=== PATIENT | female | born 1940 | race Caucasian/White ===

== ENCOUNTER 2023-07-12 11:17 | Emergency (ER) | payer MEDICARE, SELFPAY ==
[2023-07-12 11:45] VITALS: BP 162/85; PULSE 73; RESP 18; TEMP 36.4; O2SAT 96; BMI 26.6
--- NOTE | 2023-07-12 11:51 | XR_ITS ---
PROCEDURE INFORMATION: Exam: XR Chest Exam date and time: 07/12/2023 11:49 AM Age: 83 years old Clinical indication: Cough and shortness of breath TECHNIQUE: Imaging protocol: Radiologic exam of the chest. Views: 2 views. Total images: 2 COMPARISON: No relevant prior studies available. FINDINGS: Tubes, catheters and devices: A pacemaker device is present, its leads in appropriate position. Lungs: Bilateral hyperinflation is present. Pleural spaces: No focal pneumonia or pneumothorax. No pleural effusions. Heart/Mediastinum: The heart is not enlarged. Vasculature: Mild atherosclerotic disease. Bones/joints: Postoperative changes of the right shoulder. Postoperative changes of the lumbar spine. Intraperitoneal space: Postoperative changes noted within the epigastric region. IMPRESSION: 1. Bilateral hyperinflation is present. 2. No focal pneumonia or pneumothorax.
--- NOTE | 2023-07-12 12:39 | ED_ITS ---
Discharge Plan Disposition Patient Disposition: Home, Self-Care Condition: Good Prescriptions Prescriptions: New prednisone 10 mg tablet 10 mg PO BID 5 Days Qty: 10 0RF No Action cefdinir 300 mg capsule See Rx Instructions .ROUTE .COMPLEX Patient Comments: TAKE 1 CAPSULE BY MOUTH TWICE DAILY FOR 7 DAYS Rx Instructions: TAKE 1 CAPSULE BY MOUTH TWICE DAILY FOR 7 DAYS labetalol 200 mg tablet 200 mg PO BID famotidine 20 mg tablet 20 mg PO BID Patient Comments: TAKE 1 TABLET BY MOUTH TWICE DAILY nifedipine 60 mg tablet extended release 24hr 60 mg PO DAILY levothyroxine [Synthroid] 50 mcg tablet 50 mcg PO DAILY Referrals Follow up/Referrals: Gianna Zheng APRN [Primary Care Provider] - See instructions Activity Restrictions/Add. Instructions Additional Instructions/Restrictions: Tylenol and ibuprofen as needed for pain or fever Humidifier/vaporizer/hot steamy shower Follow-up with primary care tomorrow. Follow-up immediately in the ER of the [facility] for new or worsening symptoms or no noticeable improvement over the next 48-72 hours. Stop smoking Inhaler every 4-6 hours as needed. Should help open airways improved cough, wheezing, shortness of breath Feliciano Ward will not cause drowsiness to use at bedtime to help stop cough so that she can get some sleep Start steroids today. Helps with inflammation therefore coughing and wheezing. Follow directions on package. Clinical Impressions Clinical Impression: Bronchitis Instructions Patient Instructions: DI for Acute Bronchitis Discharge ED Provider: Bonita ([facility])Hansa [facility] HPI General Stated complaint: flu+ hard cough congestion weakness Mode of Arrival: Ambulatory Source of Information: Patient Limitations: No Limitations Time Seen by Provider: 07/12/23 12:39 Description of Symptoms (Recalled from Triage Doc. by RN): Pt was dx with flu 07/05/2023. She has coughing, and fatigue. HEENT Symptoms (Recalled from RN notes): Yes Resp Symptoms (Recalled from RN notes): No Skin Symptoms (Recalled from RN notes): No MS Symptoms (Recalled from RN notes): No Functional Status (Recalled from RN notes): n/a History of Present Illness Provider Complaint: 83 yr old female presents for c/o coughing, and fatigue. Related Data Home Medications Medication Instructions Recorded Confirmed cefdinir 300 mg capsule See Rx Instructions .Route .COMPLEX 07/12/23 07/12/23 famotidine 20 mg tablet 20 mg PO BID 07/12/23 07/12/23 labetalol 200 mg tablet 200 mg PO BID 07/12/23 07/12/23 levothyroxine 50 mcg tablet 50 mcg PO DAILY 07/12/23 07/12/23 (Synthroid) nifedipine 60 mg tablet,extended 60 mg PO DAILY 07/12/23 07/12/23 release 24 hr Previous Rx's Medication Instructions Recorded prednisone 10 mg tablet 10 mg PO BID 5 days #10 tabs 07/12/23 Allergies Allergy/AdvReac Type Severity Reaction Status Date / Time Penicillins Allergy Verified 07/12/23 12:08 Sulfa (Sulfonamide Allergy Verified 07/12/23 12:08 Antibiotics) Worker's Comp Is this a Worker's Comp case?: No [facility] Disclaimer: The information contained in this section may have been updated after the patient was seen, as this information can be updated by other users. Social History , [employer]) Smoking Status: Smoker, status unknown alcohol intake: never current occupational status: retired Travel in the last 8 weeks: None ROS Obtained: Yes All systems reviewed & no additional complaints except as documented Constitutional Constitutional: Reports system reviewed and no additional complaints, except as documented Eyes Eyes: Reports system reviewed and no additional complaints, except as documented ENT Ears, Nose, Mouth, and Throat: Reports system reviewed and no additional complaints, except as documented Cardiovascular Cardiovascular: Reports system reviewed and no additional complaints, except as documented Respiratory Respiratory: Reports system reviewed and no additional complaints, except as documented, Reports as per HPI and Reports cough Gastrointestinal Gastrointestingal: Reports system reviewed and no additional complaints, except as documented Musculoskeletal Musculoskeletal: Reports system reviewed and no additional complaints, except as documented Integumentary/Breasts Skin/Breast: Reports system reviewed and no additional complaints, except as documented Neurologic Neurologic: Reports system reviewed and no additional complaints, except as documented Endocrine Endocrine: Reports system reviewed and no additional complaints, except as documented Allergic/Immunologic Allergic/Immunologic: Reports system reviewed and no additional complaints, except as documented Physical Exam General General appearance: alert and in no apparent distress Head Head exam: atraumatic Eye Eye exam: Present normal appearance and PERRL ENT ENT exam: Present normal exam, normal oropharynx, mucous membranes moist and TM's normal bilaterally Respiratory Respiratory exam: Present wheezes Cardiovascular Cardiovascular exam: Present regular rate and normal rhythm Neurological Exam Neurological exam: Present alert and oriented X3 Skin Skin exam: Present warm and intact Medical Decision Making Medical Records Medical records reviewed: Yes I reviewed the patient's medical records. Xander Inquiry Pt receiving controlled substance: No Xander was queried for this patient: No Vital Signs: 07/12/23 11:45 Temperature 97.6 F Temperature Source Oral Pulse Rate [Right Radial] 73 Respiratory Rate 18 Blood Pressure [Right Arm] 162/85 H Blood Pressure Mean [Right Arm] 110 Blood Pressure Source [Right Arm] Automatic Cuff Blood Pressure Position [Right Arm] Sitting 02 Sat by Pulse Oximetry 96 Oxygen Delivery Method Room Air Orders (Tests/Meds): ORDERS Category Date Time Status Chest XR 2 view (NOT portable) [XR chest 2V] Stat Exams 07/12/23 11:51 Taken Radiology Data #1: Image(s): Chest Image Reviewed: Yes I have reviewed radiologist's interpretation Preliminary Findings: Normal/NAD bronchitis
[2023-07-12 13:33] VITALS: BP 162/85; PULSE 73; RESP 18; TEMP 36.6; O2SAT 96
== END 2023-07-12 13:33 | disposition home or self-care (01) ==
PROVIDERS: Emergency Provider Nurse Practitioner Family; PCP Nurse Practitioner Family
DX: J20.9 Acute bronchitis, unspecified (principal); R53.83 Other fatigue; R05.9 Cough, unspecified
CPT/HCPCS: 71046; 99204; 99212; G0463

== ENCOUNTER 2023-10-19 10:07 | Emergency (ER) | payer MEDICARE, SELFPAY ==
[2023-10-19 10:08] VITALS: BP 174/91; PULSE 77; RESP 19; TEMP 36.6; O2SAT 96; BMI 26.6
[2023-10-19 10:18] VITALS: BP 193/87; PULSE 73; O2SAT 96
[2023-10-19 10:24] LABS: Microscopic, Urine URINE MICROSCOPIC (MICROSCOPIC)
[2023-10-19 10:26] LABS: Appearance,Urine CLEAR (Clear); Bilirubin,Urine Negative (Negative); Blood, Urine Negative (Negative); Color,Urine YELLOW (Yellow); Glucose,Urine (UA) Negative (Negative); Ketones,Urine Negative (Negative); Leukocyte Esterase,Urine 2+ (Negative); Nitrate,Urine Negative (Negative); Protein,Urine Negative (Negative); Urobilinogen,Urine 0.2 EU/dl (0.2)
[2023-10-19 10:30] VITALS: BP 174/91; PULSE 70; O2SAT 97
[2023-10-19 10:35] LABS: Bacteria,Urine Trace /lpf
--- NOTE | 2023-10-19 10:53 | ECG_ITS ---
APPROVED REPORT Exam: Resting ECG HR:74 bpm ECG Measurements Heart Rate 74 AXES AL 242 P 111 QRSd 124 QRS -58 QT 382 T 29 QTc 410 Conclusion Normal sinus rhythm left axis deviation no acute ST elevation ST depression or T wave inversions concerning for acute ischemia Electronically signed by : Daja Hein, 10/19/2023 16:19:02
--- NOTE | 2023-10-19 11:26 | HMH.EDGENADL ---
Discharge Plan Disposition Patient Disposition: Home, Self-Care Chief Complaint: Recheck/Abnormal Lab/Rx Prescriptions Prescriptions: No Action cefdinir 300 mg capsule See Rx Instructions .ROUTE .COMPLEX Patient Comments: TAKE 1 CAPSULE BY MOUTH TWICE DAILY FOR 7 DAYS Rx Instructions: TAKE 1 CAPSULE BY MOUTH TWICE DAILY FOR 7 DAYS labetalol 200 mg tablet 200 mg PO BID famotidine 20 mg tablet 20 mg PO BID Patient Comments: TAKE 1 TABLET BY MOUTH TWICE DAILY nifedipine 60 mg tablet extended release 24hr 60 mg PO DAILY levothyroxine [Synthroid] 50 mcg tablet 50 mcg PO DAILY prednisone 10 mg tablet 10 mg PO BID 5 Days Qty: 10 0RF Referrals Follow up/Referrals: Gianna Zheng APRN [Primary Care Provider] - See instructions Activity Restrictions/Add. Instructions Additional Instructions/Restrictions: return to the emergency department if if she develops any unilateral weakness numbness chest pain trouble breathing nausea vomiting or headache Clinical Impressions Clinical Impression: Asymptomatic hypertension Print Language Print Language: Maltese Discharge ED Provider: Daja Hein General Adult HPI General Chief complaint: Recheck/Abnormal Lab/Rx Stated complaint: high blood pressure Time Seen by Provider: 10/19/23 10:38 Mode of Arrival: Ambulatory Source of Information: Patient Limitations: No Limitations Description of Symptoms (Recalled from ER Triage Doc. by RN): pt presents to ED with c/o high blood pressure. pt reports that for the past few weeks she has had high blood pressure readings at home. pt has had medications changes by her pcp on 10/14/23 pt was told to stop her labetalol and start carvedilol 12.5mg 2x day. pt reports her highest reading at home has been 181 systolic. History of Present Illness HPI narrative: Patient is a 83-year-old with past medical history significant for hypertension. Patient recently transitioned from labetalol to carvedilol on the seventh because it was making her drowsy. Since then she has had a woozy feeling and blood pressures have been ranging from 160s to 190s systolic. She was recommended by her PCP to be evaluated in the emergency department. Patient denies any visual symptoms headaches unilateral numbness tingling weakness chest pain trouble breathing Nausea or vomiting. Related Data Home Medications ?Medication ?Instructions ?Recorded ?Confirmed cefdinir 300 mg capsule See Rx Instructions .Route .COMPLEX 07/12/23 07/12/23 famotidine 20 mg tablet 20 mg PO BID 07/12/23 07/12/23 labetalol 200 mg tablet 200 mg PO BID 07/12/23 07/12/23 levothyroxine 50 mcg tablet 50 mcg PO DAILY 07/12/23 07/12/23 (Synthroid) nifedipine 60 mg tablet,extended 60 mg PO DAILY 07/12/23 07/12/23 release 24 hr Previous Rx's ?Medication ?Instructions ?Recorded prednisone 10 mg tablet 10 mg PO BID 5 days #10 tabs 07/12/23 Allergies Allergy/AdvReac Type Severity Reaction Status Date / Time Penicillins Allergy Verified 07/12/23 12:08 Sulfa (Sulfonamide Allergy Verified 07/12/23 12:08 Antibiotics) [facility] Disclaimer: The information contained in this section may have been updated after the patient was seen, as this information can be updated by other users. Social History (Updated 07/12/23 @ 13:24 by Hansa Mesa ([facility]), [employer]) Smoking Status: Never smoker alcohol intake: never current occupational status: retired Travel in the last 8 weeks: None ROS Obtained: Yes All systems reviewed & no additional complaints except as documented Physical Exam General General appearance: alert Head Head exam: atraumatic and normocephalic Eye Eye exam: Present PERRL and EOMI ENT ENT exam: Present normal exam and mucous membranes moist Neck Neck exam: Present full ROM Chest Chest inspection: Present symmetric chest wall rise Respiratory Respiratory exam: Absent respiratory distress or accessory muscle use Cardiovascular Cardiovascular exam: Present regular rate and normal rhythm Abdominal Exam Abdominal exam: Present soft; Absent tenderness Neurological Exam Neurological exam: Present alert, oriented X3, CN II-XII intact, normal gait and other (NIHSS 0, normal finger to nose and heel to allen); Absent motor sensory deficit Medical Decision Making Xander Inquiry Pt receiving controlled substance: No Vital Signs: 10/19/23 10:08 Temperature 97.9 F Temperature Source Oral Pulse Rate [Left Radial] 77 Respiratory Rate 19 Blood Pressure [Right Arm] 174/91 H Blood Pressure Mean [Right Arm] 118 02 Sat by Pulse Oximetry 96 Oxygen Delivery Method Room Air Lab Data Lab Results 10/19/23 10:19: Urine Color Yellow, Urine Appearance Clear, Urine pH 6.0, Ur Specific [place] 1.020, Urine Protein Negative, Urine Glucose (UA) Negative, Urine Ketones Negative, Urine Blood Negative, Urine Nitrate Negative, Urine Bilirubin Negative, Urine Urobilinogen 0.2, Ur Leukocyte Esterase 2+ A, Urine WBC 5-10, Ur Squamous Epith Cells 5-10, Urine Bacteria Trace Orders (Tests/Meds): ORDERS Category Date Time Status UA [Urinalysis and Microscopic] Stat Lab 10/19/23 10:19 Completed Urine Culture Stat Micro 10/19/23 10:19 Received Medical Decision Narrative: Patient is an 83-year-old with past medical history of hypertension presenting with asymptomatic hypertension. Patient's past medical history of hypertension complicates her current complaint. On arrival patient is hypertensive normal heart rate saturating appropriately on room air afebrile no acute distress. Differential diagnosis excluded from history includes stroke TIA, ACS PE hypertensive emergency. Initial systolics in the emergency department is 193 that decreased to 170s without intervention. I discussed with patient that her physical exam and history is benign as patient is currently experiencing asymptomatic hypertension. No further laboratory workup or imaging indicated at this time. I recommended following up with her primary care provider to discuss possibly increasing her carvedilol dose in order to achieve goal blood pressures less than 160. Patient was given strict return precautions including to return to the emergency department if if she develops any unilateral weakness numbness chest pain trouble breathing nausea vomiting or headache. Patient agreeable with discharge with outpatient follow-up with PCP. Critical Care Critical Care Time Critical Care Time: No
[2023-10-19 12:05] VITALS: BP 193/98; PULSE 70; O2SAT 95
[2023-10-19 12:24] VITALS: BP 170/90; PULSE 75; RESP 16; TEMP 36.6; O2SAT 96
== END 2023-10-19 12:25 | disposition home or self-care (01) ==
PROVIDERS: Emergency Provider Student in an Organized Health Care Education/Training Program; PCP Nurse Practitioner Family
DX: R42 Dizziness and giddiness (principal); I10 Essential (primary) hypertension; B96.89 Other specified bacterial agents as the cause of diseases classified elsewhere
CPT/HCPCS: 81001; 87086; 93005; 99283

== ENCOUNTER 2024-04-20 12:55 | Emergency (ER) | payer MEDICARE, SELFPAY ==
[2024-04-20] VITALS (9 sets, daily range): BP systolic 124–171; BP diastolic 65–83; PULSE 69–74; RESP 13–19; TEMP 36.7–37; O2SAT 93–97; BMI 25.7
--- NOTE | 2024-04-20 | ECG_ITS ---
APPROVED REPORT Exam: Resting ECG HR:69 bpm ECG Measurements Heart Rate 69 AXES LA 268 P 96 QRSd 132 QRS -58 QT 388 T -37 QTc 408 Conclusion ELECTRONIC ATRIAL PACEMAKER INTRAVENTRICULAR CONDUCTION DELAY [130+ ms QRS DURATION] ANTEROSEPTAL MYOCARDIAL INFARCTION , PROBABLY OLD [40+ ms Q WAVE IN V1-V4] ABNORMAL ECG Electronically signed by : CATINA MCCARTHY, 04/20/2024 15:56:33
--- NOTE | 2024-04-20 13:04 | ED_ITS ---
Discharge Plan Disposition Patient Disposition: Home, Self-Care Condition: Good Prescriptions Prescriptions: No Action carvedilol 25 mg tablet 25 mg PO BID Rx Instructions: must administer with a meal/food twice a day multivitamin Tablet 1 tab PO DAILY Rx Instructions: Take 1 tablet by mouth once a day metoclopramide HCl [Reglan] 5 mg tablet 5 mg PO TIDWMEAL Patient Comments: TAKE 1 TABLET BY MOUTH THREE TIMES DAILY WITH MEALS Rx Instructions: TAKE 1 TABLET BY MOUTH THREE TIMES DAILY WITH MEALS omega 2-oie-bmr-fish oil [Fish Oil] 1,000 (120-180) mg capsule 1 cap PO DAILY Rx Instructions: Take 1 capsule by mouth once a day esomeprazole magnesium [Nexium] 40 mg capsule,delayed release(DR/EC) 40 mg PO DAILY Patient Comments: TAKE 1 CAPSULE BY MOUTH ONCE DAILY IN THE MORNING BEFORE BREAKFAST Rx Instructions: TAKE 1 CAPSULE BY MOUTH ONCE DAILY IN THE MORNING BEFORE BREAKFAST aspirin [Adult Low Dose Aspirin] 81 mg tablet,delayed release (DR/EC) 81 mg PO DAILY Rx Instructions: 1 tablet by mouth once a day polyethylene glycol 3350 [Miralax] 17 gram powder in packet 17 g PO DAILY Rx Instructions: 17 grams dissolved in water by mouth once a day acetaminophen [Tylenol Arthritis Pain] 650 mg tablet extended release 650 mg PO Q12H Rx Instructions: 2 tablets at bedtime peg 3350-electrolytes [Golytely] 236-22.74-6.74 -5.86 gram recon soln 240 ml PO Q10M Qty: 4000 0RF Rx Instructions: at 6pm day before surgery take first dose. After mixing prep as directed, drink half of the gallon by drinking 8 ounces, or 1 cup, every 15 mins until half is remaining. refrigerate the remaining and continue clear liquids till midnight. 5-6 hours before exam, take the second dosage, 8oz every 15 mins till gone. nifedipine 60 mg tablet extended release 24hr 60 mg PO DAILY levothyroxine [Synthroid] 50 mcg tablet 50 mcg PO DAILY Referrals Follow up/Referrals: Moses Maurer II, MD [Staff Physician] - See instructions (EGD) Activity Restrictions/Add. Instructions Additional Instructions/Restrictions: As we discussed please take your esomeprazole twice a day instead of once a day. Please contact Dr. Maurer office to let them know you were seen in the ER and reschedule for EGD and colonoscopy. Follow-up with your PCP within 48 hours for recheck. For any ongoing new or worsening signs or symptoms return to the ER as needed. Clinical Impressions Clinical Impression: Abdominal pain, acute, epigastric, Hypomagnesemia Print Language Print Language: Belarusian Discharge ED Provider: Dakota Owens HPI <SASKIA Grier - Last Filed: 04/20/24 20:21> General Chief Complaint: Chest Pain Stated Complaint: CP Time Seen by Provider: 04/20/24 12:57 Mode of Arrival: Ambulatory Source of Information: Patient Limitations: No Limitations Description of Symptoms (Recalled from ER Triage Doc. by RN): pt presents to ED with c/o chest discomfort, indigestion. pt reports symptoms ongoing for the past couploe of days. she was seen by pcp yesterday and was called back today and told that everything checked out. pt reports she called her integration software engineer today who told her to come to the ER. History of Present Illness HPI narrative: Patient presents for evaluation of thoracicoabdominal pain. Patient states that she woke up this morning and has had epigastric/chest discomfort. She states it is a 4 or 5 out of 10. She states it is like pressure like I have to burp but cannot. Patient does have a history of previous hiatal hernia surgery several years ago. She has been having problems with my stomach by which she means constipation heartburn and dyspepsia since February. She has been referred to Dr. Maurer for endoscopy and had one scheduled in the early part of March but was unable to make it due to bad weather. Patient denies shortness of breath nausea vomiting diarrhea fever chills hemoptysis hematochezia melena hematemesis hematuria. Patient also has a history of a pacemaker. Related Data Home Medications ?Medication ?Instructions ?Recorded ?Confirmed levothyroxine 50 mcg tablet 50 mcg PO DAILY 07/12/23 04/20/24 (Synthroid) nifedipine 60 mg tablet,extended 60 mg PO DAILY 07/12/23 04/20/24 release 24 hr acetaminophen 650 mg 650 mg PO Q12H 02/15/24 04/20/24 tablet,extended release (Tylenol Arthritis Pain) aspirin 81 mg tablet,delayed 81 mg PO DAILY 02/15/24 04/20/24 release (Adult Low Dose Aspirin) carvedilol 25 mg tablet 25 mg PO BID 02/15/24 04/20/24 esomeprazole magnesium 40 mg 40 mg PO DAILY 02/15/24 04/20/24 capsule,delayed release (Nexium) metoclopramide HCl 5 mg tablet 5 mg PO TIDWMEAL 02/15/24 04/20/24 (Reglan) multivitamin 1 tab PO DAILY 02/15/24 04/20/24 omega 8-mqj-yks-fish oil 1,000 mg 1 cap PO DAILY 02/15/24 04/20/24 (120 mg-180 mg) capsule (Fish Oil) polyethylene glycol 3350 17 gram 17 g PO DAILY 02/15/24 04/20/24 oral powder packet (Miralax) Previous Rx's ?Medication ?Instructions ?Recorded peg 3350-electrolytes 236 240 ml PO Q10M colonscopy #4,000 mL 03/04/24 gram-22.74 gram-6.74 gram-5.86 gram solution (Golytely) Allergies Allergy/AdvReac Type Severity Reaction Status Date / Time Penicillins Allergy Verified 02/15/24 14:07 Sulfa (Sulfonamide Allergy Verified 02/15/24 14:07 Antibiotics) [facility] <SASKIA Grier - Last Filed: 04/20/24 20:21> [facility] Disclaimer: The information contained in this section may have been updated after the patient was seen, as this information can be updated by other users. Medical History (Updated 04/20/24 @ 20:21 by SASKIA Grier) Kidney disease Pacemaker HTN (hypertension) GERD (gastroesophageal reflux disease) Hypothyroid Surgical History (Updated 03/03/24 @ 14:14 by Yumi Espinoza RN) Hx of shoulder replacement History of knee replacement H/O hernia repair Family History (Updated 03/03/24 @ 14:14 by Yumi Espinoza RN) Other Family history of acute heart failure Social History (Updated 03/03/24 @ 14:08 by Yumi Espinoza RN) Smoking Status: Never smoker alcohol intake: never current occupational status: retired Travel in the last 8 weeks: None Have you lived/traveled outside [place] in past 30 days?: No Contact w/someone who lives/traveled outside US past 30 days?: No Exposure to someone with infectious disease in past 14 days?: No Do you have a fever (greater than 100.4 F or 38 C)?: No Have you tested positive for COVID-19: No Exposed to someone with COVID-19 in past 14 days?: No Do you have a sore throat?: No Do you have a cough?: No Do you have any weakness?: No Do you have any diarrhea?: No Are you experiencing any unusual bleeding?: No Do you have any muscle aches/pain?: No Do you have any abdominal pain?: No Are you experiencing loss of taste or smell?: No Other Medical History Have you received the Pneumonia Vaccine: Yes <SASKAI Grier - Last Filed: 04/20/24 20:21> ROS Obtained: Yes Systems reviewed as appropriate & no additional complaints except as documented Physical Exam <SASKIA Grier - Last Filed: 04/20/24 20:21> General General appearance: alert and in no apparent distress Respiratory Respiratory exam: Present normal lung sounds bilaterally Cardiovascular Cardiovascular exam: Present regular rate Neurological Exam Neurological exam: Present alert and oriented X3 HEART Score <SASKIA Grier - Last Filed: 04/20/24 20:21> HEART Score HEART Score assessment performed?: Yes History (anamnesis): Slightly suspicious ECG: Normal Age: >65 years Risk factors: 3 or more risk factors Troponin: </= normal limit HEART Score: 4 <Dakota Owens MD - Last Filed: 04/20/24 21:47> HEART Score HEART Score: 4 Critical Care <SASKIA Grier - Last Filed: 04/20/24 20:21> Critical Care Time Critical Care Time: Yes Attestation: On 04/20/24, the high probability of a clinically significant, sudden or life threatening deterioration of the following system(s) required my full and direct attention, intervention and personal management. The time I documented below is in addition to time spent performing reported procedures but includes the following listed in this critical care notation. Total Time Total Critical Care Time: 35 Medical Decision Making <SASKIA Grier - Last Filed: 04/20/24 20:21> Medical Records Medical records reviewed: Yes I reviewed the patient's medical records. Xander Inquiry Pt receiving controlled substance: No Vital Signs Vital Signs: 04/20/24 12:55 04/20/24 13:03 04/20/24 13:30 Temperature 98.6 F Temperature Source Oral Pulse Rate 71 74 Pulse Rate [Left Radial] 72 Respiratory Rate 19 17 15 Blood Pressure 171/65 H 154/81 H Blood Pressure [Right Arm] 162/80 H Blood Pressure Mean [Right Arm] 107 Blood Pressure Source Automatic Cuff Blood Pressure Position Sitting 02 Sat by Pulse Oximetry 95 94 L 97 Oxygen Delivery Method Room Air Room Air 04/20/24 14:33 04/20/24 15:00 04/20/24 15:30 Temperature Temperature Source Pulse Rate 70 73 Pulse Rate [Left Radial] Respiratory Rate 15 16 19 Blood Pressure 171/65 H 130/65 124/83 Blood Pressure [Right Arm] Blood Pressure Mean [Right Arm] Blood Pressure Source Blood Pressure Position 02 Sat by Pulse Oximetry 95 97 93 L Oxygen Delivery Method Room Air 04/20/24 16:00 04/20/24 16:30 04/20/24 17:00 Temperature 98.0 F Temperature Source Oral Pulse Rate 69 72 73 Pulse Rate [Left Radial] Respiratory Rate 13 18 16 Blood Pressure 149/77 H 155/75 H 155/75 H Blood Pressure [Right Arm] Blood Pressure Mean [Right Arm] Blood Pressure Source Automatic Cuff Blood Pressure Position Sitting 02 Sat by Pulse Oximetry 94 L 94 L Oxygen Delivery Method Room Air Room Air Room Air Lab Data Lab results reviewed: Yes I reviewed the patient's lab results. Labs: Lab Results 04/20/24 12:57: WBC 7.1, RBC 4.38, Hgb 13.4, Hct 40.0, MCV 91.3, MCH 30.6, MCHC 33.5, RDW 11.7, Plt Count 283, MPV 10.6 H, Neut % (Auto) 61.4, Lymph % (Auto) 23.6, [place] % (Auto) 10.9 H, Eos % (Auto) 3.1, Baso % (Auto) 0.6, Neut # (Auto) 4.4, Lymph # (Auto) 1.7, [place] # (Auto) 0.8, Eos # (Auto) 0.2, Baso # (Auto) 0.0, PT 10.8, INR 0.96, Sodium 135 L, Potassium 4.6, Chloride 102, Carbon Dioxide 24, Anion Gap 13.6, BUN 14, Creatinine 0.90, Estimated Creat Clear 49, Estimated GFR 60, Est GFR ( Amer) 73, Glucose 98, Calcium 9.6, Magnesium 1.4 L, Total Bilirubin 0.5, AST 35, ALT 21, Alkaline Phosphatase 90, Troponin I < 0.01, NT-Pro-B Natriuret Pep 246, Total Protein 7.0, Albumin 4.5, Globulin 2.5, Albumin/Globulin Ratio 1.8, Lipase 101, Procalcitonin 0.056, HCV Ab MIGUEL w/Rflx PCR Qn Negative, HIV Ag/Ab Combo Qual Negative 04/20/24 16:10: Troponin I < 0.01 04/20/24 12:57 04/20/24 12:57 Response Orders (Tests/Meds): ED MEDICATIONS Discontinued Medications Generic Name Dose Route Start Last Admin Trade Name Freq PRN Reason Stop Dose Admin Acetaminophen 1,000 mg 04/20/24 13:22 04/20/24 13:42 Acetaminophen 1,000mg/100ml Vial IV 04/20/24 13:23 1,000 mg ONCE ONE Administration Belladonna Alkaloids 60 ml 04/20/24 13:22 04/20/24 13:41 Belladonna Alkaloids 60 Ml Ml PO 04/20/24 13:23 60 ml ONCE ONE Administration Magnesium Sulfate 2 gm in 50 mls @ 50 mls/hr 04/20/24 14:09 04/20/24 14:27 Magnesium Sulfate 2gm/50ml Premix IV 04/20/24 15:08 50 mls/hr ONCE ONE Administration Iopamidol 80 ml 04/20/24 13:59 04/20/24 14:01 Iopamidol-370 (76%);100ml Bottle IV 04/20/24 14:00 80 ml ONCE ONE Administration Promethazine HCl 12.5 mg 04/20/24 13:22 04/20/24 13:42 Promethazine Hcl 25mg/Ml 1ml Vial IV 04/20/24 13:23 12.5 mg ONCE ONE Administration Sodium Chloride 25 ml 04/20/24 13:22 04/20/24 13:42 Sodium Chloride 0.9% 25ml Bag IV 04/20/24 13:23 25 ml ONCE ONE Administration Sodium Chloride 10 ml 04/20/24 13:59 04/20/24 14:01 Sodium Chloride 0.9% 10ml Syr (Rad Only) IV 04/20/24 14:00 10 ml ONCE ONE Administration Sodium Chloride 50 ml 04/20/24 13:59 04/20/24 14:01 0.9 % Sodium Chloride 50 Ml Vial IV 04/20/24 14:00 50 ml ONCE ONE Administration ORDERS Category Date Time Status CT angio abdomen pelvis Stat Cat Scan 04/20/24 13:[address] angio chest - dissection Stat Cat Scan 04/20/24 13:21 Completed BNP [NT Pro Brain Natriuretic Pep.] Stat Lab 04/20/24 12:57 Completed CBC w/Auto Diff [Complete Blood Count Auto Diff] Stat Lab 04/20/24 12:57 Completed CMP [Comprehensive Metabolic Panel] Stat Lab 04/20/24 12:57 Completed HIV Combo Stat Lab 04/20/24 12:57 Completed Hepatitis C Ab Qual. W/ RFX Stat Lab 04/20/24 12:57 Completed INR [Prothrombin Time INR] Stat Lab 04/20/24 12:57 Completed Lipase Stat Lab 04/20/24 12:57 Completed Magnesium Stat Lab 04/20/24 12:57 Completed Procalcitonin Stat Lab 04/20/24 12:57 Completed Trop I [Troponin I] Stat Lab 04/20/24 12:57 Completed Troponin I Q3H Lab 04/20/24 16:10 Completed MDM Narrative Medical Decision Narrative: In summary patient is a 83-year-old female who presents to the emergency department for evaluation of thoracicoabdominal pressure. Patient is hemodynamically stable with a blood pressure 160/80 pulse 72 and what appears to be a paced rhythm on the bedside monitor breathing 19 times a minute satting at 95% on room air upon arrival, afebrile at 98.6. Physical exam is remarkable for clear breath sounds with no increased work of breathing or adventitious sounds, normal heart sounds, no reproducible chest pain or pressure on palpation. Abdomen soft nontender no rebound no guarding or rigidity. Bowel sounds normal active.. Differential diagnosis includes ACS versus aortic dissection versus esophagitis versus gastritis versus pancreatitis versus ulcer etc. Initial workup will be conducted with hematologic labs CTA chest abdomen pelvis. Initial interventions include Tylenol GI cocktail. Initial workup reviewed by me and her hematologic labs are significant for a magnesium of 1.4 which will be repleted IV 2 negative troponins a procalcitonin is 0.056 the remainder of her hematologic labs being nonactionable. My informal interpretation of her CT scan PE protocol does not show any evidence of thrombus or acute intrathoracic problem.. Upon repeat evaluation patient actually had complete resolution of her discomfort after administration of the GI cocktail. Given this patient is appropriate for discharge with instructions to take her esomeprazole twice a day and notify Dr. Maurer of gastroenterology in the morning that she likely needs EGD for further evaluation of her thoracicoabdominal pain as it is likely GI in nature. Patient to follow-up with PCP within 48 hours for recheck of her magnesium. <Claudia Wyman, DO - Last Filed: 04/20/24 13:31> Vital Signs Vital Signs: 04/20/24 12:55 04/20/24 13:03 04/20/24 13:30 Temperature 98.6 F Temperature Source Oral Pulse Rate 71 74 Pulse Rate [Left Radial] 72 Respiratory Rate 19 17 15 Blood Pressure 171/65 H 154/81 H Blood Pressure [Right Arm] 162/80 H Blood Pressure Mean [Right Arm] 107 Blood Pressure Source Automatic Cuff Blood Pressure Position Sitting 02 Sat by Pulse Oximetry 95 94 L 97 Oxygen Delivery Method Room Air Room Air 04/20/24 14:33 04/20/24 15:00 04/20/24 15:30 Temperature Temperature Source Pulse Rate 70 73 Pulse Rate [Left Radial] Respiratory Rate 15 16 19 Blood Pressure 171/65 H 130/65 124/83 Blood Pressure [Right Arm] Blood Pressure Mean [Right Arm] Blood Pressure Source Blood Pressure Position 02 Sat by Pulse Oximetry 95 97 93 L Oxygen Delivery Method Room Air 04/20/24 16:00 04/20/24 16:30 04/20/24 17:00 Temperature 98.0 F Temperature Source Oral Pulse Rate 69 72 73 Pulse Rate [Left Radial] Respiratory Rate 13 18 16 Blood Pressure 149/77 H 155/75 H 155/75 H Blood Pressure [Right Arm] Blood Pressure Mean [Right Arm] Blood Pressure Source Automatic Cuff Blood Pressure Position Sitting 02 Sat by Pulse Oximetry 94 L 94 L Oxygen Delivery Method Room Air Room Air Room Air Lab Data Labs: Lab Results 04/20/24 12:57: WBC 7.1, RBC 4.38, Hgb 13.4, Hct 40.0, MCV 91.3, MCH 30.6, MCHC 33.5, RDW 11.7, Plt Count 283, MPV 10.6 H, Neut % (Auto) 61.4, Lymph % (Auto) 23.6, [place] % (Auto) 10.9 H, Eos % (Auto) 3.1, Baso % (Auto) 0.6, Neut # (Auto) 4.4, Lymph # (Auto) 1.7, [place] # (Auto) 0.8, Eos # (Auto) 0.2, Baso # (Auto) 0.0, PT 10.8, INR 0.96, Sodium 135 L, Potassium 4.6, Chloride 102, Carbon Dioxide 24, Anion Gap 13.6, BUN 14, Creatinine 0.90, Estimated Creat Clear 49, Estimated GFR 60, Est GFR ( Amer) 73, Glucose 98, Calcium 9.6, Magnesium 1.4 L, Total Bilirubin 0.5, AST 35, ALT 21, Alkaline Phosphatase 90, Troponin I < 0.01, NT-Pro-B Natriuret Pep 246, Total Protein 7.0, Albumin 4.5, Globulin 2.5, Albumin/Globulin Ratio 1.8, Lipase 101, Procalcitonin 0.056, HCV Ab MIGUEL w/Rflx PCR Qn Negative, HIV Ag/Ab Combo Qual Negative 04/20/24 16:10: Troponin I < 0.01 Response Orders (Tests/Meds): ED MEDICATIONS Discontinued Medications Generic Name Dose Route Start Last Admin Trade Name Freq PRN Reason Stop Dose Admin Acetaminophen 1,000 mg 04/20/24 13:22 04/20/24 13:42 Acetaminophen 1,000mg/100ml Vial IV 04/20/24 13:23 1,000 mg ONCE ONE Administration Belladonna Alkaloids 60 ml 04/20/24 13:22 04/20/24 13:41 Belladonna Alkaloids 60 Ml Ml PO 04/20/24 13:23 60 ml ONCE ONE Administration Magnesium Sulfate 2 gm in 50 mls @ 50 mls/hr 04/20/24 14:09 04/20/24 14:27 Magnesium Sulfate 2gm/50ml Premix IV 04/20/24 15:08 50 mls/hr ONCE ONE Administration Iopamidol 80 ml 04/20/24 13:59 04/20/24 14:01 Iopamidol-370 (76%);100ml Bottle IV 04/20/24 14:00 80 ml ONCE ONE Administration Promethazine HCl 12.5 mg 04/20/24 13:22 04/20/24 13:42 Promethazine Hcl 25mg/Ml 1ml Vial IV 04/20/24 13:23 12.5 mg ONCE ONE Administration Sodium Chloride 25 ml 04/20/24 13:22 04/20/24 13:42 Sodium Chloride 0.9% 25ml Bag IV 04/20/24 13:23 25 ml ONCE ONE Administration Sodium Chloride 10 ml 04/20/24 13:59 04/20/24 14:01 Sodium Chloride 0.9% 10ml Syr (Rad Only) IV 04/20/24 14:00 10 ml ONCE ONE Administration Sodium Chloride 50 ml 04/20/24 13:59 04/20/24 14:01 0.9 % Sodium Chloride 50 Ml Vial IV 04/20/24 14:00 50 ml ONCE ONE Administration ORDERS Category Date Time Status CT angio abdomen pelvis Stat Cat Scan 04/20/24 13:[address] angio chest - dissection Stat Cat Scan 04/20/24 13:21 Completed BNP [NT Pro Brain Natriuretic Pep.] Stat Lab 04/20/24 12:57 Completed CBC w/Auto Diff [Complete Blood Count Auto Diff] Stat Lab 04/20/24 12:57 Completed CMP [Comprehensive Metabolic Panel] Stat Lab 04/20/24 12:57 Completed HIV Combo Stat Lab 04/20/24 12:57 Completed Hepatitis C Ab Qual. W/ RFX Stat Lab 04/20/24 12:57 Completed INR [Prothrombin Time INR] Stat Lab 04/20/24 12:57 Completed Lipase Stat Lab 04/20/24 12:57 Completed Magnesium Stat Lab 04/20/24 12:57 Completed Procalcitonin Stat Lab 04/20/24 12:57 Completed Trop I [Troponin I] Stat Lab 04/20/24 12:57 Completed Troponin I Q3H Lab 04/20/24 16:10 Completed ECG Data Tracing #1: Attestation: I reviewed this ECG and interpreted as documented below: ECG Narrative: Atrially paced at a ventricular rate of 69 bpm. No acute STEMI. ECG initial impression date: 04/20/24 ECG initial impression time: 12:55 <Dakota Owens MD - Last Filed: 04/20/24 21:47> Vital Signs Vital Signs: 02/12/25 12:55 04/20/24 13:03 04/20/24 13:30 Temperature 98.6 F Temperature Source Oral Pulse Rate 71 74 Pulse Rate [Left Radial] 72 Respiratory Rate 19 17 15 Blood Pressure 171/65 H 154/81 H Blood Pressure [Right Arm] 162/80 H Blood Pressure Mean [Right Arm] 107 Blood Pressure Source Automatic Cuff Blood Pressure Position Sitting 02 Sat by Pulse Oximetry 95 94 L 97 Oxygen Delivery Method Room Air Room Air 04/20/24 14:33 04/20/24 15:00 04/20/24 15:30 Temperature Temperature Source Pulse Rate 70 73 Pulse Rate [Left Radial] Respiratory Rate 15 16 19 Blood Pressure 171/65 H 130/65 124/83 Blood Pressure [Right Arm] Blood Pressure Mean [Right Arm] Blood Pressure Source Blood Pressure Position 02 Sat by Pulse Oximetry 95 97 93 L Oxygen Delivery Method Room Air 04/20/24 16:00 04/20/24 16:30 04/20/24 17:00 Temperature 98.0 F Temperature Source Oral Pulse Rate 69 72 73 Pulse Rate [Left Radial] Respiratory Rate 13 18 16 Blood Pressure 149/77 H 155/75 H 155/75 H Blood Pressure [Right Arm] Blood Pressure Mean [Right Arm] Blood Pressure Source Automatic Cuff Blood Pressure Position Sitting 02 Sat by Pulse Oximetry 94 L 94 L Oxygen Delivery Method Room Air Room Air Room Air Lab Data Labs: Lab Results 04/20/24 12:57: WBC 7.1, RBC 4.38, Hgb 13.4, Hct 40.0, MCV 91.3, MCH 30.6, MCHC 33.5, RDW 11.7, Plt Count 283, MPV 10.6 H, Neut % (Auto) 61.4, Lymph % (Auto) 23.6, [place] % (Auto) 10.9 H, Eos % (Auto) 3.1, Baso % (Auto) 0.6, Neut # (Auto) 4.4, Lymph # (Auto) 1.7, [place] # (Auto) 0.8, Eos # (Auto) 0.2, Baso # (Auto) 0.0, PT 10.8, INR 0.96, Sodium 135 L, Potassium 4.6, Chloride 102, Carbon Dioxide 24, Anion Gap 13.6, BUN 14, Creatinine 0.90, Estimated Creat Clear 49, Estimated GFR 60, Est GFR ( Amer) 73, Glucose 98, Calcium 9.6, Magnesium 1.4 L, Total Bilirubin 0.5, AST 35, ALT 21, Alkaline Phosphatase 90, Troponin I < 0.01, NT-Pro-B Natriuret Pep 246, Total Protein 7.0, Albumin 4.5, Globulin 2.5, Albumin/Globulin Ratio 1.8, Lipase 101, Procalcitonin 0.056, HCV Ab MIGUEL w/Rflx PCR Qn Negative, HIV Ag/Ab Combo Qual Negative 04/20/24 16:10: Troponin I < 0.01 Response Orders (Tests/Meds): ED MEDICATIONS Discontinued Medications Generic Name Dose Route Start Last Admin Trade Name Freq PRN Reason Stop Dose Admin Acetaminophen 1,000 mg 04/20/24 13:22 04/20/24 13:42 Acetaminophen 1,000mg/100ml Vial IV 04/20/24 13:23 1,000 mg ONCE ONE Administration Belladonna Alkaloids 60 ml 04/20/24 13:22 04/20/24 13:41 Belladonna Alkaloids 60 Ml Ml PO 04/20/24 13:23 60 ml ONCE ONE Administration Magnesium Sulfate 2 gm in 50 mls @ 50 mls/hr 04/20/24 14:09 04/20/24 14:27 Magnesium Sulfate 2gm/50ml Premix IV 04/20/24 15:08 50 mls/hr ONCE ONE Administration Iopamidol 80 ml 04/20/24 13:59 04/20/24 14:01 Iopamidol-370 (76%);100ml Bottle IV 04/20/24 14:00 80 ml ONCE ONE Administration Promethazine HCl 12.5 mg 04/20/24 13:22 04/20/24 13:42 Promethazine Hcl 25mg/Ml 1ml Vial IV 04/20/24 13:23 12.5 mg ONCE ONE Administration Sodium Chloride 25 ml 04/20/24 13:22 04/20/24 13:42 Sodium Chloride 0.9% 25ml Bag IV 04/20/24 13:23 25 ml ONCE ONE Administration Sodium Chloride 10 ml 04/20/24 13:59 04/20/24 14:01 Sodium Chloride 0.9% 10ml Syr (Rad Only) IV 04/20/24 14:00 10 ml ONCE ONE Administration Sodium Chloride 50 ml 04/20/24 13:59 04/20/24 14:01 0.9 % Sodium Chloride 50 Ml Vial IV 04/20/24 14:00 50 ml ONCE ONE Administration ORDERS Category Date Time Status CT angio abdomen pelvis Stat Cat Scan 04/20/24 13:[address] angio chest - dissection Stat Cat Scan 04/20/24 13:21 Completed BNP [NT Pro Brain Natriuretic Pep.] Stat Lab 04/20/24 12:57 Completed CBC w/Auto Diff [Complete Blood Count Auto Diff] Stat Lab 04/20/24 12:57 Completed CMP [Comprehensive Metabolic Panel] Stat Lab 04/20/24 12:57 Completed HIV Combo Stat Lab 04/20/24 12:57 Completed Hepatitis C Ab Qual. W/ RFX Stat Lab 04/20/24 12:57 Completed INR [Prothrombin Time INR] Stat Lab 04/20/24 12:57 Completed Lipase Stat Lab 04/20/24 12:57 Completed Magnesium Stat Lab 04/20/24 12:57 Completed Procalcitonin Stat Lab 04/20/24 12:57 Completed Trop I [Troponin I] Stat Lab 04/20/24 12:57 Completed Troponin I Q3H Lab 04/20/24 16:10 Completed MDM Narrative Medical Decision Narrative: In summary patient is a 83-year-old female who presents to the emergency department for evaluation of thoracicoabdominal pressure. Patient is hemodynamically stable with a blood pressure 160/80 pulse 72 and what appears to be a paced rhythm on the bedside monitor breathing 19 times a minute satting at 95% on room air upon arrival, afebrile at 98.6. Physical exam is remarkable for clear breath sounds with no increased work of breathing or adventitious sounds, normal heart sounds, no reproducible chest pain or pressure on palpation. Abdomen soft nontender no rebound no guarding or rigidity. Bowel sounds normal active.. Differential diagnosis includes ACS versus aortic dissection versus esophagitis versus gastritis versus pancreatitis versus ulcer etc. Initial workup will be conducted with hematologic labs CTA chest abdomen pelvis. Initial interventions include Tylenol GI cocktail. Initial workup reviewed by me and her hematologic labs are significant for a magnesium of 1.4 which will be repleted IV 2 negative troponins a procalcitonin is 0.056 the remainder of her hematologic labs being nonactionable. My informal interpretation of her CT scan PE protocol does not show any evidence of thrombus or acute intrathoracic problem.. Upon repeat evaluation patient actually had complete resolution of her discomfort after administration of the GI cocktail. Given this patient is appropriate for discharge with instructions to take her esomeprazole twice a day and notify Dr. Maurer of gastroenterology in the morning that she likely needs EGD for further evaluation of her thoracicoabdominal pain as it is likely GI in nature. Patient to follow-up with PCP within 48 hours for recheck of her magnesium. I was consulted by the EMMA, and we discussed the complexity of the problems being addressed. I approved the treatment and management plan for this patient's care in the Emergency Department, thus performing a substantive portion of the medical decision making. Dakota Owens MD
--- NOTE | 2024-04-20 13:21 | CT_ITS ---
FINAL REPORT TECHNIQUE: Axial imaging of the chest is obtained after the administration of contrast. 3-D MIP reformatted images were also obtained and reviewed per PE protocol. This study was performed with techniques to keep radiation doses as low as reasonably achievable (ALARA). Individualized dose reduction techniques using automated exposure control or adjustment of mA and/or kV according to the patient's size were employed. CLINICAL HISTORY: Midline thoracicoabdominal pain COMPARISON: None FINDINGS: The pulmonary arteries are well filled. There is no evidence of central pulmonary embolus. There is no aortic dissection or aortic aneurysm. Heart size is borderline in size. There is no mediastinal, hilar, or axillary lymphadenopathy. The lungs are clear without evidence of suspicious nodule or mass. There is no pleural or pericardial effusion. Changes of remote granulomatous disease are noted. No acute osseous abnormality. IMPRESSION: No evidence of pulmonary embolism, or aortic dissection or aneurysm. Reviewed, Interpreted and Dictated by Aishwarya Ann MD Transcribed by Lisa Amaro Authenticated and [facility]
--- NOTE | 2024-04-20 13:21 | CT_ITS ---
FINAL REPORT TECHNIQUE: Thin section axial images were obtained through the abdomen and pelvis after contrast injection per CT angiogram protocol. Multiplanar reconstruction images were obtained from the axial data. This exam was performed with techniques to keep radiation dose as low as reasonably achievable. This includes automated exposure control, adjustment of the MA and KVP, and iterative reconstruction technique. CLINICAL HISTORY: Midline thoracicoabdominal pain COMPARISON: None FINDINGS: CTA: No abdominal aortic aneurysm or aortic dissection. Atherosclerotic disease is present in the aorta. The celiac axis is patent without evidence of significant stenosis. 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 The KYLE is patent. The renal arteries are patent. The common iliac arteries and visualized portions of the internal and external iliac arteries are patent. No significant stenosis. NONVASCULAR: The gallbladder is absent. The solid abdominal organs are without acute abnormality. There is a hypodense left renal lesion, favor cyst. The GI tract is without acute abnormality. No small bowel obstruction is identified. The appendix is normal. There is diverticulosis of the sigmoid colon without evidence of acute inflammatory change. The uterus and adnexa are without acute abnormality. No evidence of ascites is present. No lymphadenopathy or free fluid. Postoperative changes are noted in the lumbar spine without acute bony abnormality. IMPRESSION: No evidence of abdominal aortic aneurysm or dissection. 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 Reviewed, Interpreted and Dictated by Aishwarya Ann MD Transcribed by Lisa Amaro Authenticated and [facility]
[2024-04-20 13:35] LABS: Albumin Level 4.5 g/dl (3.5-5.0); Chloride 102 mmol/L (98-107); Potassium 4.6 mmoL/L (3.5-5.1); Sodium 135 mmol/L (136-145)
[2024-04-20 13:36] LABS: Basophils % 0.6 % (0.1-2.0); Eosinophils # 0.2 K/mm3 (0.0-0.4); Eosinophils % 3.1 % (0.1-12.0); Hemoglobin 13.4 g/dL (12.2-16.2); Lymphocytes # 1.7 K/mm3 (0.7-4.5); Lymphocytes % 23.6 % (10-50); Mean Corpuscular HGB Conc 33.5 g/dL (31.8-35.4); Mean Corpuscular Hemoglobin 30.6 pg (27.0-31.2); Mean Corpuscular Volume 91.3 fl (81-99); Mean Platelet Volume 10.6 fl (7.4-10.4); Monocytes # 0.8 K/mm3 (0.1-1.0); Monocytes % 10.9 % (1.7-9.3); Neutrophils # 4.4 K/mm3 (1.8-7.8); Neutrophils % 61.4 % (37.0-80.0); Platelet Count 283 K/mm3 (142-424); Red Blood Count 4.38 M/mm3 (4.20-5.40); Red Cell Distribution Width 11.7 % (11.5-17.5); White Blood Count 7.1 K/mm3 (4.8-10.8)
[2024-04-20 13:37] LABS: Blood Urea Nitrogen 14 mg/dl (7-17); Creatinine Clearance Estimated 49 mL/min (50-200); Estimated Glomerular Filt Rate 60 ml/min (>60); GFR (African American) 73 ML/MIN (>60)
[2024-04-20 13:38] LABS: Alanine Aminotransferase 21 U/L (12-78); Albumin/Globulin Ratio 1.8 (1.1-1.8); Alkaline Phosphatase 90 U/L (38-126); Anion Gap 13.6 mEq/L (5-15); Aspartate Amino Transferase 35 U/L (14-36); Bilirubin,Total 0.5 mg/dl (0.2-1.3); Calcium 9.6 mg/dl (8.4-10.2); Carbon Dioxide 24 mmol/L (22.0-30.0); Globulin 2.5 g/dL (1.3-3.2); Glucose 98 mg/dl (74-100)
[2024-04-20 13:40] LABS: Lipase 101 U/L (23-300); Magnesium 1.4 mg/dl (1.6-2.3)
[2024-04-20] MEDS: BELLADONNA ALKALOIDS 60 ML ML PO (13:41)
[2024-04-20] MEDS: SODIUM CHLORIDE 0.9% 25ML BAG 25 ML IV (13:42)
[2024-04-20] MEDS: PROMETHAZINE HCL 25MG/ML 1ML VIAL 12.5 MG IV (13:42)
[2024-04-20] MEDS: ACETAMINOPHEN 1,000MG/100ML VIAL 1000 MG IV (13:42)
[2024-04-20 13:43] LABS: INR 0.96 (0.9-1.1); Prothrombin Time 10.8 seconds (10.1-12.5)
[2024-04-20 13:50] LABS: NT Pro Brain Natriuretic Pep. 246 pg/mL (0-450)
[2024-04-20 13:51] LABS: Troponin I < 0.01 ng/ml (0.00-0.034)
[2024-04-20 13:58] LABS: Procalcitonin 0.056 ng/mL (0.0-2.0)
[2024-04-20] MEDS: IOPAMIDOL-370 (76%);100ML BOTTLE 80 ML IV (14:01)
[2024-04-20] MEDS: SODIUM CHLORIDE 0.9% 10ML SYR (RAD ONLY) 10 ML IV (14:01)
[2024-04-20] MEDS: 0.9 % SODIUM CHLORIDE 50 ML VIAL IV (14:01)
[2024-04-20] MEDS: MAGNESIUM SULFATE IN WATER 2 GM/50 ML PIGGYBACK IV (14:27)
--- NOTE | 2024-04-20 14:36 | PC.NURSE ---
Assisted patient to bathroom. Patient voided 600ml clear yellow urine. Assisted patient back to bed. She is sitting up in bed with visitor at bedside.
--- NOTE | 2024-04-20 15:34 | PC.NURSE ---
ROUNDED ON THE PT. THE PT VOICES THAT SHE DOES NOT NEED ANYTHING AT THIS TIME. CALL LIGHT IS WITHIN REACH OF THE PT. FAMILY MEMBER IS PRESENT AT THE BEDSIDE.
--- NOTE | 2024-04-20 16:32 | PC.NURSE ---
CALL LIGHT IS WITHIN REACH OF THE PT. THE PT VOICES THAT SHE DOES NOT NEED ANYTHING AT THIS TIME. CALL LIGHT IS WITHIN REACH OF THE PT. IS PRESENT AT THE BEDSIDE.
[2024-04-20 16:40] LABS: Troponin I < 0.01 ng/ml (0.00-0.034)
[2024-04-20 17:26] LABS: HIV Combo NEGATIVE (Negative)
[2024-04-20 17:35] LABS: Hepatitis C Ab Qual. W/ RFX NEGATIVE (Negative)
== END 2024-04-20 17:02 | disposition home or self-care (01) ==
PROVIDERS: Emergency Medicine; Physician Assistant; Emergency Provider Emergency Medicine
DX: E83.42 Hypomagnesemia (principal); R07.9 Chest pain, unspecified; R10.13 Epigastric pain; K59.00 Constipation, unspecified
CPT/HCPCS: 71275; 74174; 80053; 83690; 83735; 83880; 84145; 84484; 85025; 85610; 86803; 87389; 93005; 96361; 96374; 96375; 99285; J0131; J2550; J3475; Q9967

== ENCOUNTER 2024-05-04 10:14 | Day surgery (SDC) | payer MEDICARE, SELFPAY ==
[2024-03-03 14:15] VITALS: BMI 26.1
[2024-05-03 10:28] VITALS: BMI 30.4
[2024-05-04 10:49] VITALS: BP 168/71; PULSE 73; RESP 18; TEMP 36.4; O2SAT 95
[2024-05-04] MEDS: LACTATED RINGERS 1000ML 1,000 ML 50 ML IV (11:04)
[2024-05-04 11:23] VITALS: O2SAT 95
--- NOTE | 2024-05-04 11:27 | EXP.HP ---
History of Present Illness *Admission Date: 05/04/24 *Reason for visit:: Change in bowel habits *History of present illness: Mrs. Mike is an 83-year-old female who is here for diagnostic colonoscopy secondary to a change in bowel habits. The patient also has had worsening constipation, nausea, bloating and gas pressure. She has had small-volume stools.. The examination is deemed medically necessary for diagnostic colonoscopy. The patient has been seen, interviewed and examined prior to the procedure by both myself and the anesthesia provider. [facility] Disclaimer: The information contained in this section may have been updated after the patient was seen, as this information can be updated by other users. Medical History Kidney disease Pacemaker HTN (hypertension) GERD (gastroesophageal reflux disease) Hypothyroid Surgical History History of esophagogastroduodenoscopy (EGD) History of colonoscopy History of surgery on right wrist History of back surgery History of bunionectomy Hx of shoulder replacement History of knee replacement H/O hernia repair Family History (Updated 05/04/24 @ 11:02 by Carlita Bocanegra RN) Other Family history of acute heart failure Tuberculosis Social History Smoking Status: Never smoker alcohol intake: never current occupational status: retired Travel in the last 8 weeks: None caffeine: Yes Have you lived/traveled outside [place] in past 30 days?: No Contact w/someone who lives/traveled outside US past 30 days?: No Exposure to someone with infectious disease in past 14 days?: No Do you have a fever (greater than 100.4 F or 38 C)?: No Have you tested positive for COVID-19: No Exposed to someone with COVID-19 in past 14 days?: No Do you have a sore throat?: No Do you have a cough?: No Do you have any weakness?: No Are you experiencing any nausea/vomitting?: No Do you have any diarrhea?: No Are you experiencing any unusual bleeding?: No Do you have any muscle aches/pain?: No Do you have any abdominal pain?: No Are you experiencing loss of taste or smell?: No Other Medical History Have you received the Pneumonia Vaccine: Yes Review of Systems Review of Systems Review of systems (narrative): Negative *Cardiovascular Comments: Negative *Gastrointestinal Comments: Negative *Genitourinary Comments: Negative *Musculoskeletal Comments: Negative *Neurologic Comments: Negative Meds Home Medications and Allergies Home Medications ?Medication ?Instructions ?Recorded ?Confirmed ?Type levothyroxine 50 mcg tablet 50 mcg PO DAILY 07/12/23 05/04/24 History (Synthroid) acetaminophen 650 mg 650 mg PO Q12H 02/15/24 05/04/24 History tablet,extended release (Tylenol Arthritis Pain) aspirin 81 mg tablet,delayed 81 mg PO DAILY 02/15/24 05/04/24 History release (Adult Low Dose Aspirin) carvedilol 25 mg tablet 25 mg PO BID 02/15/24 05/04/24 History multivitamin 1 tab PO DAILY 02/15/24 05/04/24 History omega 4-nit-hvx-fish oil 1,000 mg 1 cap PO DAILY 02/15/24 05/04/24 History (120 mg-180 mg) capsule (Fish Oil) polyethylene glycol 3350 17 gram 17 g PO DAILY 02/15/24 05/04/24 History oral powder packet (Miralax) peg 3350-electrolytes 236 240 ml PO Q10M colonscopy #4,000 mL 03/04/24 05/04/24 Rx gram-22.74 gram-6.74 gram-5.86 gram solution (Golytely) esomeprazole magnesium 40 mg 40 mg PO DAILY 04/27/24 05/04/24 History capsule,delayed release (Nexium) lactobacillus combination no.9 4 4,000 mmu cells PO DAILY 04/27/24 05/04/24 History billion cell capsule (Adult 50 Plus Probiotic) nifedipine 90 mg tablet,extended 90 mg PO DAILY 04/27/24 05/04/24 History release 24 hr psyllium husk 3.4 gram/5.4 gram 1 tbsp PO DAILY 04/27/24 05/04/24 History oral powder (Metamucil) New Prescriptions to Start Prescriptions: Allergies Allergy/AdvReac Type Severity Reaction Status Date / Time Penicillins Allergy Unknown Verified 05/04/24 10:52 allergy reaction Sulfa (Sulfonamide Allergy Unknown Verified 05/04/24 10:52 Antibiotics) allergy reaction Exam Data for Last 24 hours Vital signs and Labs for Last 24 Hours: Temp Pulse Resp BP Pulse Ox O2 Del Method O2 Flow Rate 97.5 F L 73 18 168/71 H 95 Nasal Cannula 5 05/04/24 10:49 05/04/24 10:49 05/04/24 10:49 05/04/24 10:49 05/04/24 10:49 05/04/24 11:23 05/04/24 11:23 I & O for Last 24 hours: Intake & Output 05/01/24 05/02/24 05/03/24 05/04/24 23:59 23:59 23:59 23:59 Weight 183 lb *Routine HEENT Exam Head: Present normocephalic Eye: Present EOMI and PERRL ENT: Present mucous membranes moist *Routine Neck Exam Neck: Present supple *Routine Respiratory Exam Respiratory: Present CTA bilaterally *Routine Cardiovascular Exam Cardiovascular: Present RRR *Routine Abdominal Exam Abdominal: Present soft and normoactive bowel sounds; Absent tenderness *Routine Rectal Exam Rectal:: deferred *Routine Genitalia Exam Genitalia:: deferred *Routine Extremities Exam Extremities: Absent cyanosis, clubbing or edema *Routine Skin Exam Skin: Present warm; Absent rash *Routine Neurological Exam Neurological: Present alert and oriented X3 Assessment and Plan *Assessment and plan (1) Change in bowel habits: Status: Acute Category: Medical Code(s): R19.4 - Change in bowel habit (2) Constipation: Status: Acute Category: Medical Code(s): K59.00 - Constipation, unspecified (3) Bloating: Status: Acute Category: Medical Code(s): R14.0 - Abdominal distension (gaseous) (4) Nausea: Status: Acute Category: Medical Code(s): R11.0 - Nausea (5) Weight loss: Status: Acute Category: Medical Code(s): R63.4 - Abnormal weight loss (6) Loss of appetite: Status: Acute Category: Medical Code(s): R63.0 - Anorexia Plan A/P: 1. Change in bowel habits with constipation, bloating and fullness is the preprocedural diagnosis. The patient will be anesthetized/sedated using MAC sedation. The patient has been seen and examined. Cardiac and lung assessment prior to the examination is stable. Proceed with planned diagnostic colonoscopy
--- NOTE | 2024-05-04 11:30 | P.PCN_ITS ---
[facility] Procedure Note Date: 05/04/24 Time: 11:30 Procedure Note:: Upper Endoscopy Procedure Report: Esophagogastroduodenoscopy with cold biopsies Endoscopost: Moses Maurer II, MD Referring Physician: STANLEY Newby Date of Procedure: May 04, 2024 Equipment: Olympus GIF 190 standard upper endoscope Sedation: MAC sedation Indications: Mrs. Mike is an 83-year-old female who is here for diagnostic upper endoscopy and diagnostic colonoscopy. The patient does report right-sided abdominal fullness, discomfort and bloating. She also has had some epigastric discomfort. She has had some intermittent nausea, loss of appetite and minor weight loss. She did go to the emergency department with midsternal chest pressure and pain and had a normal cardiac workup. Her CAT scan had shown retained stool on the right side. The patient has had a change in bowel habits and started developing worsening constipation. She has had bloating, gassiness and belching. She reports small-volume stools. Her last colonoscopy was over 10 years ago (at [facility]). She did have a hiatal hernia repair/fundoplication with Dr. Maco Mack over 10 years ago. Procedure: Prior to the procedure, a history and physical exam was performed, and patient's medications and allergies were reviewed. The risks, benefits and alternatives of the sedation and procedure were discussed with the patient. All questions were answered and informed consent was obtained. The patient was brought to the procedure room. Patient identification and proposed procedure were verified by the physician and the nurse. The patient was placed in a left lateral decubitus position and the scope was passed under direct vision. Throughout the procedure, the patient's blood pressure, pulse, and oxygen saturations were monitored continuously. The upper GI endoscopy was accomplished without difficulty. The patient tolerated the procedure well. Findings: The scope was passed directly into the upper esophagus and advanced to the third portion of the duodenum. The post bulbar duodenum and duodenal bulb were normal with normal mucosa and conniventes. The scope was withdrawn through a normal duodenal bulb and pylorus into the stomach. There was bile reflux with moderate linear reactive gastropathy of the antrum and body of the stomach. The fundus was normal. Upon retroflexion there was an intact fundoplication. Cold biopsies were taken from the antrum. The scope was then withdrawn into the esophagus. There was no evidence of reflux esophagitis or Morel's. There is no corrugation, furrowing or rings or strictures. There were tertiary contractions and evidence of moderate esophageal dysmotility. The remainder of the esophageal mucosa was normal. Impression: 1. Nonerosive GERD with moderate esophageal dysmotility and intact fundoplication 2. Bile reflux with moderate linear reactive gastropathy Plan: I will follow-up the biopsies. The patient does have some functional dyspepsia. I do feel that most of her symptoms of dyspepsia are related to and driven by lower intestinal gas pressure gradients/high gas pressure buildup resulting in backflow of bile and peptic fluid from the duodenum into the stomach (duodenal reflux). This gas production (carbon dioxide, hydrogen, methane, etc.) from the lower intestinal tract is the byproduct of colonic bacterial fermentation. This colonic fermentation occurs when there is more carbohydrate (dietary starches, sugars and high residue plant fiber) substrate that does not get digested (in the middle or small intestine) or occurs when there is colonic fecal buildup and colonic bacterial overgrowth. This indeed leads to bloating and the gas pressure buildup with gas pressure gradients that do drive backflow and dyspepsia. I will discuss the findings with the patient and family and proceed with colonoscopy.
--- NOTE | 2024-05-04 11:39 | [facility].PROCNOTE ---
[facility] Procedure Note Date: 05/04/24 Time: 11:52 Procedure Note:: Colonoscopy Procedure Report: Colonoscopy Endoscopist: Moses Maurer II, MD Referring Physician: STANLEY Newby Date of Procedure: May 04, 2024 Equipment: Olympus PCF 190 pediatric colonoscope Sedation: MAC sedation Indications: Mrs. Mike is an 83-year-old female who is here for diagnostic upper endoscopy and diagnostic colonoscopy. The patient does report right-sided abdominal fullness, discomfort and bloating. She also has had some epigastric discomfort. She has had some intermittent nausea, loss of appetite and minor weight loss. She did go to the emergency department with midsternal chest pressure and pain and had a normal cardiac workup. Her CAT scan had shown retained stool on the right side. The patient has had a change in bowel habits and started developing worsening constipation. She has had bloating, gassiness and belching. She reports small-volume stools. Her last colonoscopy was over 10 years ago (at [facility]). She did have a hiatal hernia repair/fundoplication with Dr. Maco Mack over 10 years ago. Procedure: Prior to the procedure, a history and physical exam was performed, and patient's medications and allergies were reviewed. The risks, benefits and alternatives of the sedation and procedure were discussed with the patient. All questions were answered and informed consent was obtained. The patient was brought to the procedure room. Patient identification and proposed procedure were verified by the physician and the nurse. The patient was placed in a left lateral decubitus position and the scope was passed under direct vision. Throughout the procedure, the patient's blood pressure, pulse, and oxygen saturations were monitored continuously. The colonoscopy was accomplished without difficulty. The patient tolerated the procedure well. Findings: On digital rectal examination there was normal rectal tone. There were no external hemorrhoids. The colonoscope was introduced through the anal canal to the rectum and advanced to the cecum. The ileocecal valve and appendiceal orifice were identified. The scope was advanced a short distance into the ileum which appeared grossly normal. The scope was then withdrawn into the colon. The cecum, ascending and transverse colon and mucosa were grossly normal. There were extensively scattered diverticuli throughout the descending and sigmoid colon (LEFT colon). The rectum itself was normal. Upon retroflexion within the rectum there were grade 2 internal hemorrhoids. The preparation was excellent throughout with [place] Preparation Score of 9. The cecal time was 12 minutes. Impression: 1. Extensive left-sided diverticulosis 2. Grade 2 internal hemorrhoids Plan: I will encourage regular use of the combined fiber bowel regimen (MiraLAX plus Konsyl every morning or twice daily). 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 Hepatic flexure syndrome is a term used to describe bloating, muscle spasms of the colon and upper abdominal pa discomfort on the right side and is thought to be caused by trapped gas and stool at the hepatic flexure/curvature of the colon which is in the right upper colon. The patient will require no further preventive colonoscopy.
[2024-05-04 11:54] VITALS: BP 107/52; PULSE 55; RESP 18; TEMP 36.4; O2SAT 91
[2024-05-04 12:04] VITALS: BP 135/63; PULSE 70; RESP 18; O2SAT 96
[2024-05-04 12:14] VITALS: BP 147/69; PULSE 71; RESP 18; O2SAT 96
[2024-05-04 12:33] VITALS: BP 147/70; PULSE 71; RESP 18; O2SAT 96
== END 2024-05-04 12:33 | disposition home or self-care (01) ==
PROVIDERS: Visit Provider Internal Medicine Gastroenterology
PROC: 0DJ08ZZ Inspection of Upper Intestinal Tract, Via Natural or Artificial Opening Endoscopic (ICD-10-PCS; CPT 45378; principal; 2024-05-04 12:00)
DX: K31.9 Disease of stomach and duodenum, unspecified (principal); K21.9 Gastro-esophageal reflux disease without esophagitis; K22.4 Dyskinesia of esophagus; K57.30 Diverticulosis of large intestine without perforation or abscess without bleeding; K64.1 Second degree hemorrhoids; K59.00 Constipation, unspecified; R14.0 Abdominal distension (gaseous); R11.0 Nausea; R63.4 Abnormal weight loss; R63.0 Anorexia
CPT/HCPCS: 43239; 45378; J7120

== ENCOUNTER 2024-07-19 13:23 | Emergency (ER) | payer MEDICARE, SELFPAY ==
[2024-07-19 13:32] VITALS: BP 164/79; PULSE 70; RESP 19; TEMP 36.7; O2SAT 97; BMI 25.7
[2024-07-19 13:34] VITALS: BP 157/78; PULSE 70; O2SAT 96
--- OUTSIDE RECORDS SUMMARY | 2024-07-19 13:36 | XMS_ITS | Data Portability ---
Author Organization [facility] LEONARDO Forrest [facility] Address [address] [address] [place] [address] Assessment No assessment recorded. Plan of Treatment Reminders Order Date Submit Date Provider Last Modified By Organization Details Last Modified Time Details Appointments None recorded. Lab None recorded. Referral None recorded. Procedures fluoroscopy guided joint injection (PROC) 2017 018 [email or web address] Not available 8 09:20:31 Surgeries None recorded. Imaging None recorded. Medication Orders None recorded. Patient TargetsNo targets recorded. Patient Instructions Encounter Date Encounter Id Patient Instructions Last Modified By Organization Details Last Modified Time 05/19/2017 [id number] shoulder arthritis: exercises [email or web address] Not available 05/19/2017 11:33:13 Reason for Referral None Reported. Results Created Date Observation Date Name Description Value Unit Range Abnormal Flag Note LastModifiedBy Organization Detail LastModifiedTime 09/14/19 21 09/13/2020 SURGI RAFAEL surgical SEE BELOW Depar tment of Patho logy Surgi rafael Patho logy Repor t NAME: SLOANE THOMPSON PATH. 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 SOURC E OF SPECI MEN: CECAL POLYP CLINI RAFAEL INFOR MATIO N: SCREE SILVA Gross Descr iptio n: Recei leigh in forma cornelio label ed with the patie nt's name and desig nated as ceca l polyp is a singl e fragm ent of pale brooke tissu e measu ring 0.2 cm. Entir sofia submi tted in one casse tte. MT 09/13 03:57 PM Micro scopi c Descr iptio n: A micro scopi c exami natio n has been perfo rmed. Origi nal and deepe r secti ons were studi ed. JANET MERAZ MD Radha d Out Date: 09/14 11:36 Page 1 of 1 Not Available [facility] [address] [place] [address], [phone], 09/14/2020 11:37:48 05/20/19 18 05/19/2017 rf RT shoul charles stero id injec tion [facility] [address] [place] [address] Patien t Name: SLOANE MIKE Patien t : [birth year] 45 Patien t 4 Orderi ng Provid er: TRAVON VALDEZ EXAM DATE: 2017 EXAM: RF RT SHOULD ER STEROI D INJECT ION HISTOR Y: Right should er pain. TECHNI QUE: The patien t was positi oned supine on the fluoro scopy table and an entry site was locali zed under fluoro scopic guidan ce. The skin was preppe d and draped in the usual steril e fashio n. 1% Lidoca ine was used to anesth etize the skin and subcut aneous tissue s. A 22-gau ge spinal needle was introd uced into the anteri or aspect of the glenoh umeral joint. The needle tip positi on within the glenoh umeral joint was confir med with 2 cc Isovue -300. Subseq uently , 2 cc dexame thason e (4 mg/mL) and 6cc bupiva citlalli 0.5% were introd uced into the joint. The needle was remove d in the patien t tolera kalina the proced ure well. 2ml of a 50ml vial of Isovue 300 was inject ed into the patien t. The remain ing 48ml of Isovue 300 was wasted and discar ded. [facility] 0270-1 [id number] [facility] [phone]- [phone] [facility] [address]- [phone] IMPRES JASON: 1. The patien t is status post right should er arthro gram with dexame thason e and bupiva citlalli inject ion withou t compli cation . Interp reted By: Emre Sheth MD Electr onical ly Signed By: Emre Sheth MD on 018 12:[address] [place] [address], [phone], 05/19/2017 21:46:14 Result Notes None recorded. Procedures Surgical History None recorded. Imaging Results Imaging Date Name Status LastModified by Organiz ation Details LastModified Time 05/19/2017 rf RT shoulder steroid injection completed [address] Radiology [facility] [address] [place], [address], 05/19/2017 21:46:14 Procedure Notes None recorded. Medical Equipment None Reported. Allergies Allergen ID Allergen Name Allergen Category Reaction Reaction Severity Criticality Documentation Date Start Date Code Code System Note Provider Name and Address Organization Details Recorded Time 168456 Substance with sulfonami de structure and antibacte rial mechanism of action (substanc e) medicatio n Not available Not available Not available 05/19/2017 44025 [facility] 8 11:21:32 194643 Product containin g penicilli n (product) medicatio n Not available Not available Not available 05/19/2017 93576 8001 [facility] 8 11:21:40 Medications Name Sig Start Date Stop Date Status Note LastModified by Organization Details LastModified Time Silace 50 mg/5 mL oral liquid TK 10 MLS PO QD active Not Available Not Available No t Available clonidine HCl 0.1 mg tablet active Not Available Not Available Not Available clonidine 0.1 mg/24 hr weekly transdermal patch APPLY 1 PATCH TOPICALLY ONCE A WEEK active Not Available Not Available No t Available doxazosin 1 mg tablet TAKE 1 TABLET BY MOUTH ONCE DAILY active Not Available Not Available No t Available metoprolol succinate ER 50 mg tablet,exte nded release 24 hr TAKE 1 TABLET BY MOUTH ONCE DAILY FOR 30 DAYS active Not Available Not Available No t Available promethazin e 6.25 mg/5 mL oral syrup TAKE 10 ML BY MOUTH EVERY 6 HOURS NEEDED FOR NAUSEA AND VOMITING active Not Available Not Available No t Available lovastatin 40 mg tablet 05/19 completed Not Available Not Available Not Available meclizine 12.5 mg tablet TAKE 1 TABLET BY MOUTH THREE TIMES DAILY NEEDED FOR DIZZINESS active Not Available Not Available No t Available amlodipine 5 mg tablet TAKE 1 TABLET BY MOUTH ONCE DAILY active Not Available Not Available No t Available ciprofloxac in 500 mg tablet 05/19 completed Not Available Not Available Not Available tramadol 50 mg tablet active Not Available Not Available No t Available meloxicam 7.5 mg tablet active Not Available Not Available Not Available potassium chloride ER 20 mEq tablet,exte nded release(par t/cryst) active Not Available Not Available Not Available meclizine 25 mg tablet active Not Available Not Available Not Available amlodipine 5 mg-benazepr il 20 mg capsule 05/19 completed Not Available Not Available Not Available amlodipine 10 mg tablet active Not Available Not Available Not Available levothyroxi ne 50 mcg tablet active Not Available Not Available Not Available diclofenac potassium 50 mg tablet 05/19 completed Not Available Not Available Not Available omeprazole 20 mg capsule,del ayed release active Not Available Not Available Not Available hydrocortis one 2.5 % topical cream APPLY CREAM TO AFFECTED AREA TO AFFECTED AREA TWICE DAILY FOR 7 DAYS active Not Available Not Available No t Available hydralazine 50 mg tablet active Not Available Not Available Not Available hydrochloro thiazide 25 mg tablet active Not Available Not Available No t Available diclofenac sodium 50 mg tablet,natalya yed release active Not Available Not Available Not Available furosemide 20 mg tablet active Not Available Not Available Not Available levofloxaci n 500 mg tablet active Not Available Not Available Not Available oxycodone-a cetaminophe n 7.5 mg-325 mg tablet active Not Available Not Available Not Available lovastatin 20 mg tablet active Not Available Not Available Not Available benazepril 40 mg tablet active Not Available Not Available Not Available cefdinir 300 mg capsule TAKE 1 CAPSULE BY MOUTH TWICE DAILY FOR 7 DAYS active Not Available Not Available No t Available fluticasone propionate 50 mcg/actuati on nasal spray,suspe nsion USE 2 SPRAY(S) IN EACH NOSTRIL ONCE DAILY active Not Available Not Available No t Available Premarin 0.625 mg tablet Take 1 tablet every day by oral route. active Not Available Not Available No t Available hydrocodone 7.5 mg-acetamin ophen 325 mg/15 mL oral solution TAKE 15 ML EVERY 4 HOURS NEEDED FOR moderate pain FOR UP TO EIGHT DAYS active Not Available Not Available No t Available aspirin active Not Available Not Avail able Not Available amlodipine 5 mg-benazepr il 40 mg capsule active Not Available Not Available Not Available levocetiriz ine 5 mg tablet TAKE 1 TABLET BY MOUTH ONCE DAILY FOR HAY FEVER active Not Available Not Available No t Available Suprep Bowel Prep Kit 17.5 gram-3.13 gram-1.6 gram oral solution As directed active Not Available Not Available No t Available glucosamine 750 mg-chondroi tin 600 mg chewable tablet Take by oral route. active Not Available Not Available No t Available Vitals Date Recorded Body height Body mass index (BMI) Body weight Systolic blood pressure Diastolic blood pressure Provider Name and Address Organization Details Last Updated DateTime 05/19/2017 167.64 cm 29.2 kg/m2 52596.22 g 147 mm[Hg] 83 mm[Hg] Emilycoleman Perezson [facility] 8 11:23:49 Social History Question Answer Notes LastModified by Organizat ion Details LastModified Time Tobacco Smoking Status Never Smoker [facility] 05/19/2017 11:22:22 What Was The Date Of Your Most Recent Tobacco Screening? 05/19/2017 Information n ot available 04/26/2019 Sex: Unknown Functional Status None recorded. Mental Status None recorded. Family History Nothing Reported. Medical History Condition Response Kidney Stones N COPD N Arthritis Y Cancer N Stroke N Kidney Disease N Heart Conditions N Tuberculosis N Asthma N Thyroid Disease Y Anesthesia Complications N Blood Thinners Y High Cholesterol Y Liver Disease N Heart Attack ([place]) N Diabetes N Seizures/Epilepsy N Sleep Apnea N Hypertension Y Gynecological HistoryNo gynecological history recorded. Obstetrics History GPAL:G 0 P 0 0 0 0 Past Encounters Encounter ID Performer Location Encounter Start Date Encounter Closed Date Diagnosis/Indication Diagnosis SNOMED-CT Code Diagnosis ICD10 Code Diagnosis Note [id number] TRAVON VALDEZ MD [facility] [address] [place] [address] 05/19/2017 10:09:22 05/21/2017 17:35:14 Localized, primary osteoarthritis of the shoulder region 360408778 M19.019 Severe GH. counseling re TSR will trial inject and supportive we had a good this today and we discussed the severity of her arthritis. She's had a point that she would still like to trial supportive nonoperati ve measures. We've discussed heat, ice, topicals, as needed injections , TENS unit, and light home exercise program. We also discussed potential future total shoulder arthroplas ty and the risks and recovery process. Answered all questions to the best of our ability and I think she feels comfortabl e with this plan. [id number] SHERLY GHOSH MD SURGERY SCHEDULE [address] [place] [address] 09/13/2020 11:56:20 09/13/2020 11:56:54 Health Concerns Section Related Observation LastModified by Organization Detai ls LastModified Time None Recorded Concern Status LastModified by Organization Details LastModified Time None Recorded Advance Directives Directive None Recorded Payers Insurance Date Sequence Insurance Name Policy Number Policy Burnett Covered Member ID Burnett Member ID Guarantor Name 09/17/2020 1 [employer] (MEDICARE REPLACEMENT/A DVANTAGE - PPO) Sloane Mike [id number] Sloane Mike Notes Date Note Type Note Provider Name and Address Organization Details Recorded Time 05/19/2017 text/html Sloane is a 76-year-old [id number] female patient of Dr. Tylor brizuela. Finally referred for evaluation of her significantly painful shoulder. She describes a course of acute upon chronic pain. She's had trouble with the shoulder for years but it's become much worse in the last 3 months. She has a deep aching pain with occasional catching. She has night pain. She's becoming functionally limited by her loss of movement. TRAVON VALDEZ MD [address] [place], [address], [facility] 05/21/2017 08:45:23 OBGyn Episode No OBEpisode recorded.
--- OUTSIDE RECORDS SUMMARY | 2024-07-19 13:36 | XMS_ITS | Data Portability ---
Author Organization [facility] Address [address] [place] [address] Care Team Providers Care Head Sulfide Operator Name Role Phone DEANGELO NAVAS Primary Care Provider Assessment No assessment recorded. Plan of Treatment Reminders Order Date Submit Date Provider Last Modified By Organization Details Last Modified Time Details Appointments None recorded. Lab CMP, serum or plasma 2022 023 [facility] (Laboratory), [address] [place], [address], 3 14:29:08 PTH (parathyroi d hormone), intact, serum or plasma 2022 023 [facility] (Laboratory), [address] [place], [address], 3 13:10:34 CBC w/ auto diff 2022 023 [facility] (Laboratory), [place], [address], 3 13:51:57 vitamin D, 25-hydroxy, total, serum 2022 023 [email or web address] [facility] (Laboratory), [place], [address], 3 08:16:43 uric acid, serum or plasma 2022 023 [facility] (Laboratory), [place], [address], 3 14:29:10 urinalysis, dipstick [address] (Laboratory), [address] [place], [address], 3 08:16:43 protein:cre atinine ratio, urine [address] (Laboratory), [address] [place], [address], 3 08:16:43 CBC w/ diff [address] (Laboratory), [address] [place], [address], 3 08:51:55 CMP, serum or [facility] [address] [place], [address], 3 17:26:40 TSH + free T4, serum [address] (Laboratory), [address] [place], [address], 3 08:51:56 urinalysis, dipstick 2022 023 [email or web address] Not available 3 11:17:25 CMP, serum or plasma [address] (Laboratory), [address] [place], [address], 3 08:02:08 CBC w/ auto diff 2022 023 [email or web address] [facility] (Laboratory), [address] [place], [address], 3 08:02:08 urinalysis, dipstick [address] (Laboratory), [address] [place], [address], 3 08:17:43 uric acid, serum or plasma 2022 023 [email or web address] [facility] (Laboratory), [address] [place], [address], 3 08:02:08 vitamin D, 25-hydroxy, total, serum [address] (Laboratory), [address] [place], [address], 3 08:17:43 PTH (parathyroi d hormone), intact, serum or plasma 2022 023 LETICIA [facility] (Laboratory), [address] [place], [address], 3 12:15:13 protein:cre atinine ratio, urine [address] (Laboratory), [address] [place], [address], 3 08:17:44 Referral None recorded. Procedures None recorded. Surgeries None recorded. Imaging None recorded. Medication Orders ondansetron 4 mg disintegrat ing tablet [facility] [facility] [facility] [place], [address], 3 10:39:42 dicyclomine 10 mg capsule [address] [facility], [address] [place], [address], 3 10:39:48 Patient TargetsNo targets recorded. Patient Instructions Encounter Date Encounter Id Patient Instructions Last Modified By Organization Details Last Modified Time 05/20/2022 [id number] frequent urination: care instructions [email or web address] Not available 05/20/2022 11:17:25 bladder training : care instructions [email or web address] Not available 05/20/2022 11:17:25 dash diet: care instructions [email or web address] Not available 05/20/2022 11:17:25 high blood pressure: care instructions [email or web address] Not available 05/20/2022 11:17:25 08/06/2022 [id number] nausea and vomiting: care instructions [email or web address] Not available 08/06/2022 10:10:31 hypothyroidism: care instructions [email or web address] Not available 08/06/2022 10:10:31 Reason for Referral None Reported. Results Created Date Observation Date Name Description Value Unit Range Abnormal Flag Note LastModifiedBy Organization Detail LastModifiedTime 05/06/19 23 05/06/2022 CBC AUTO W DIFF WBC 9.1 10 4.5-11 .5 Not Available [facility] (Lab Registration) [address] [place], [address], 05/06/2022 17:51:31 05/06/19 23 05/06/2022 CBC AUTO W DIFF RBC 4.14 10 4.25-5 .57 low Not Available [facility] (Lab Registration) [address] [place], [address], 05/06/2022 17:51:31 05/06/19 23 05/06/2022 CBC AUTO W DIFF HGB 12.6 g/dL 12.0-1 5.7 Not Available [facility] (Lab Registration) [address] [place], [address], 05/06/2022 17:51:31 05/06/19 23 05/06/2022 CBC AUTO W DIFF HCT 39.2 % 36.0-4 7.0 Not Available [facility] (Lab Registration) [address] [place], [address], 05/06/2022 17:51:31 05/06/19 23 05/06/2022 CBC AUTO W DIFF MCV 94.7 fL 80-95 Not Available [facility] (Lab Registration) [address] [place], [address], 05/06/2022 17:51:31 05/06/19 23 05/06/2022 CBC AUTO W DIFF MCH 30.4 pg 27.0-3 4.0 Not Available [facility] (Lab Registration) [address] [place], [address], 05/06/2022 17:51:31 05/06/19 23 05/06/2022 CBC AUTO W DIFF MCHC 32.1 g/dL 32.0-3 6.0 Not Available [facility] (Lab Registration) [address] [place], [address], 05/06/2022 17:51:31 05/06/19 23 05/06/2022 CBC AUTO W DIFF platelet count 280 10 150-45 0 Not Available [facility] (Lab Registration) [address] [place], [address], 05/06/2022 17:51:31 05/06/19 23 05/06/2022 CBC AUTO W DIFF RDW 12.2 % 12.3-1 5.1 low Not Available [facility] (Lab Registration) [address] [place], [address], 05/06/2022 17:51:31 05/06/19 23 05/06/2022 CBC AUTO W DIFF MPV 11.5 fL 7.4-10 .4 high Not Available [facility] (Lab Registration) [address] [place], [address], 05/06/2022 17:51:31 05/06/19 23 05/06/2022 CBC AUTO W DIFF granulocyte% 70.2 % 40-75 Not Available [facility] (Lab Registration) [address] [place], [address], 05/06/2022 17:51:31 05/06/19 23 05/06/2022 CBC AUTO W DIFF lymphocyte% 14.2 % 15-57 low Not Available [facility] (Lab Registration) [address] [place], [address], 05/06/2022 17:51:31 05/06/19 23 05/06/2022 CBC AUTO W DIFF monocyte% 10.8 % 4.0-12 .0 Not Available [facility] (Lab Registration) [address] [place], [address], 05/06/2022 17:51:31 05/06/19 23 05/06/2022 CBC AUTO W DIFF eosinophil% 3.7 % 0.0-4. 0 Not Available [facility] (Lab Registration) [address] [place], [address], 05/06/2022 17:51:31 05/06/19 23 05/06/2022 CBC AUTO W DIFF basophil% 0.7 % 0.0-1. 0 Not Available [facility] (Lab Registration) [address] [place], [address], 05/06/2022 17:51:31 05/06/19 23 05/06/2022 CBC AUTO W DIFF immature granulocytes % 0.4 % 0.0-0. 8 Not Available [facility] (Lab Registration) [address] [place], [address], 05/06/2022 17:51:31 05/06/19 23 05/06/2022 CBC AUTO W DIFF granulocyte# 6.41 10 Not Available [facility] (Lab Registration) [address] [place], [address], 05/06/2022 17:51:31 05/06/19 23 05/06/2022 CBC AUTO W DIFF lymphocyte# 1.30 10 Not Available [facility] (Lab Registration) [address] [place], [address], 05/06/2022 17:51:31 05/06/19 23 05/06/2022 CBC AUTO W DIFF monocyte# 0.99 10 Not Available [facility] (Lab Registration) [address] [place], [address], 05/06/2022 17:51:31 05/06/19 23 05/06/2022 CBC AUTO W DIFF eosinophil# 0.34 10 Not Available [facility] (Lab Registration) [address] [place], [address], 05/06/2022 17:51:31 05/06/19 23 05/06/2022 CBC AUTO W DIFF basophil# 0.06 10 Not Available [facility] (Lab Registration) [address] [place], [address], 05/06/2022 17:51:31 05/06/19 23 05/06/2022 CBC AUTO W DIFF immature granulocytes # 0.04 10 Not Available [facility] (Lab Registration) [address] [place], [address], 05/06/2022 17:51:31 05/06/19 23 05/06/2022 CBC AUTO W DIFF manual differential NO Not Available [facility] (Lab Registration) [address] [place], [address], 05/06/2022 17:51:31 05/06/19 23 05/06/2022 CBC AUTO W DIFF note Unles s other lozoya noted testi ng perfo rmed at: [facility] [address] [place] [address] [phone] Eliezer sultana MD CLIA: [id number] Not Available [facility] (Lab Registration) [address] [place], [address], 05/06/2022 17:51:31 05/06/19 23 05/06/2022 UA DIP ONLY NO MICRO SCOPI C color YELLOW yellow Not Available [facility] (Lab Registration) [address] [place], [address], 05/06/2022 17:51:37 05/06/19 23 05/06/2022 UA DIP ONLY NO MICRO SCOPI C appearance CLEAR clear Not Available [facility] (Lab Registration) [address] [place], [address], 05/06/2022 17:51:37 05/06/19 23 05/06/2022 UA DIP ONLY NO MICRO SCOPI C glucose NORM normal Not Available [facility] (Lab Registration) [address] [place], [address], 05/06/2022 17:51:37 05/06/19 23 05/06/2022 UA DIP ONLY NO MICRO SCOPI C bilirubin NEGATI VE negati ve Not Available [facility] (Lab Registration) [address] [place], [address], 05/06/2022 17:51:37 05/06/19 23 05/06/2022 UA DIP ONLY NO MICRO SCOPI C ketone NEGATI VE mg/dL negati ve Not Available [facility] (Lab Registration) [address] [place], [address], 05/06/2022 17:51:37 05/06/19 23 05/06/2022 UA DIP ONLY NO MICRO SCOPI C specific gravity 1.005 1.005- 1.035 Not Available [facility] (Lab Registration) [address] [place], [address], 05/06/2022 17:51:37 05/06/19 23 05/06/2022 UA DIP ONLY NO MICRO SCOPI C blood NEGATI VE /mcL negati ve Not Available [facility] (Lab Registration) [address] [place], [address], 05/06/2022 17:51:37 05/06/19 23 05/06/2022 UA DIP ONLY NO MICRO SCOPI C pH 7.00 5.0-7. 5 Not Available [facility] (Lab Registration) [address] [place], [address], 05/06/2022 17:51:37 05/06/19 23 05/06/2022 UA DIP ONLY NO MICRO SCOPI C protein NEGATI VE mg/dL negati ve Not Available [facility] (Lab Registration) [address] [place], [address], 05/06/2022 17:51:37 05/06/19 23 05/06/2022 UA DIP ONLY NO MICRO SCOPI C urobilnogen NORM mg/dL normal Not Available [facility] (Lab Registration) [address] [place], [address], 05/06/2022 17:51:37 05/06/19 23 05/06/2022 UA DIP ONLY NO MICRO SCOPI C nitrite NEGATI VE negati ve Not Available [facility] (Lab Registration) [address] [place], [address], 05/06/2022 17:51:37 05/06/19 23 05/06/2022 UA DIP ONLY NO MICRO SCOPI C leukocyte esterase NEGATI VE /mcL negati ve Not Available [facility] (Lab Registration) [address] [place], [address], 05/06/2022 17:51:37 05/06/19 23 05/06/2022 UA DIP ONLY NO MICRO SCOPI C note Unles s other lozoya noted testi ng perfo rmed at: [facility] [address] [place] [address] [phone] Eliezer sultana MD CLIA: [id number] Not Available [facility] (Lab Registration) [address] [place], [address], 05/06/2022 17:51:37 05/06/19 23 05/06/2022 PROTE IN/CR EATIN INE URINE total protein urine 4 mg/dL 0.0-15 .0 Not Available [facility] (Lab Registration) [address] [place], [address], 05/06/2022 18:03:45 05/06/19 23 05/06/2022 PROTE IN/CR EATIN INE URINE creatinine urine 20.4 mg/dL 30-125 low Not Available [facility] (Lab Registration) [address] [place], [address], 05/06/2022 18:03:45 05/06/19 23 05/06/2022 PROTE IN/CR EATIN INE URINE total protein/crea tinine ratio 196 ratio 0-200 Not Available [facility] (Lab Registration) [address] [place], [address], 05/06/2022 18:03:45 05/06/19 23 05/06/2022 PROTE IN/CR EATIN INE URINE note Unles s other lozoya noted testi ng perfo rmed at: [facility] [address] [place] [address] [phone] Eliezer sultana MD CLIA: [id number] Not Available [facility] (Lab Registration) [address] [place], [address], 05/06/2022 18:03:45 05/06/19 23 05/06/2022 VITAM IN D TOTAL (D2+D 3) vitamin D25 (D2+D3) 59.7 NG/mL 30-100 Not Available [facility] (Lab Registration) [address] [place], [address], 05/06/2022 18:20:39 05/06/19 23 05/06/2022 VITAM IN D TOTAL (D2+D 3) note Unles s other lozoya noted testi ng perfo rmed at: [facility] [address] [place] [phone] Eliezer sultana MD CLIA: [id number] Not Available [facility] (Lab Registration) [address] [place], [address], 05/06/2022 18:20:39 05/06/19 23 05/06/2022 COMP METAB OLIC PANEL sodium 141 mmol/ L 136-14 5 Not Available [facility] (Lab Registration) [address] [place], [address], 05/06/2022 18:20:40 05/06/19 23 05/06/2022 COMP METAB OLIC PANEL potassium 4.3 mmol/ L 3.5-5. 1 Not Available [facility] (Lab Registration) [address] [place], [address], 05/06/2022 18:20:40 05/06/19 23 05/06/2022 COMP METAB OLIC PANEL chloride 104 mmol/ L 98-107 Not Available [facility] (Lab Registration) [address] [place], [address], 05/06/2022 18:20:40 05/06/19 23 05/06/2022 COMP METAB OLIC PANEL carbon dioxide 29 mmol/ L 21-32 Not Available [facility] (Lab Registration) [address] [place], [address], 05/06/2022 18:20:40 05/06/19 23 05/06/2022 COMP METAB OLIC PANEL anion gap 8.0 Not Available [facility] (Lab Registration) [address] [place], [address], 05/06/2022 18:20:40 05/06/19 23 05/06/2022 COMP METAB OLIC PANEL glucose 101 mg/dL 70-110 Not Available [facility] (Lab Registration) [address] [place], [address], 05/06/2022 18:20:40 05/06/19 23 05/06/2022 COMP METAB OLIC PANEL blood urea nitrogen 25 mg/dL 7-18 high Not Available [facility] (Lab Registration) [address] [place], [address], 05/06/2022 18:20:40 05/06/19 23 05/06/2022 COMP METAB OLIC PANEL creatinine 1.3 mg/dL 0.6-1. 0 high Not Available [facility] (Lab Registration) [address] [place], [address], 05/06/2022 18:20:40 05/06/19 23 05/06/2022 COMP METAB OLIC PANEL BUN/creatini ne ratio 19.2 ratio 9-21 Not Available [facility] (Lab Registration) [address] [place], [address], 05/06/2022 18:20:40 05/06/19 23 05/06/2022 COMP METAB OLIC PANEL estimated glom filtration rate 42 mL/mi n >60- low Not Available [facility] (Lab Registration) [address] [place], [address], 05/06/2022 18:20:40 05/06/19 23 05/06/2022 COMP METAB OLIC PANEL total protein 7.9 g/dL 6.4-8. 2 Not Available [facility] (Lab Registration) [address] [place], [address], 05/06/2022 18:20:40 05/06/19 23 05/06/2022 COMP METAB OLIC PANEL albumin 4.1 g/dL 3.4-5. 0 Not Available [facility] (Lab Registration) [address] [place], [address], 05/06/2022 18:20:40 05/06/19 23 05/06/2022 COMP METAB OLIC PANEL calcium 10.3 mg/dL 8.5-10 .1 high Not Available [facility] (Lab Registration) [address] [place], [address], 05/06/2022 18:20:40 05/06/19 23 05/06/2022 COMP METAB OLIC PANEL corrected calcium 10.2 mg/dL 8.5-10 .1 high Not Available [facility] (Lab Registration) [address] [place], [address], 05/06/2022 18:20:40 05/06/19 23 05/06/2022 COMP METAB OLIC PANEL bilirubin total 0.3 mg/dL 0.4-1. 5 low Not Available [facility] (Lab Registration) [address] [place], [address], 05/06/2022 18:20:40 05/06/19 23 05/06/2022 COMP METAB OLIC PANEL AST (SGOT) 22 U/L 15-37 Not Available [facility] (Lab Registration) [address] [place], [address], 05/06/2022 18:20:40 05/06/19 23 05/06/2022 COMP METAB OLIC PANEL ALT (SGPT) 21 U/L 12-78 Not Available [facility] (Lab Registration) [address] [place], [address], 05/06/2022 18:20:40 05/06/19 23 05/06/2022 COMP METAB OLIC PANEL alk phosphatase 85 U/L 53-141 Not Available [facility] (Lab Registration) [address] [place], [address], 05/06/2022 18:20:40 05/06/19 23 05/06/2022 COMP METAB OLIC PANEL note Unles s other lozoya noted testi ng perfo rmed at: [facility] [address] [place] [address] [phone] Eliezer sultana MD CLIA: [id number] Not Available [facility] (Lab Registration) [address] [place], [address], 05/06/2022 18:20:40 05/06/19 23 05/06/2022 URIC ACID uric acid 7.4 mg/dL 2.2-7. 7 Not Available [facility] (Lab Registration) [address] [place], [address], 05/06/2022 18:20:41 05/06/19 23 05/06/2022 URIC ACID note Unles s other lozoya noted testi ng perfo rmed at: [facility] [address] [place], [place] [id number] [phone] Eliezer sultana MD CLIA: [id number] Not Available [facility] (Lab Registration) [address] , [place], [address], 05/06/2022 18:20:41 05/06/19 23 05/06/2022 PTH INTAC T note Unles s other lozoya noted testi ng perfo rmed at: [facility] [address] [place], [place] [id number] [phone] Eliezer sultana MD CLIA: [id number] Not Available [facility] (Lab Registration) [address] , [place], [address], 05/08/2022 12:15:13 05/06/19 23 05/08/2022 PTH INTAC T PTH, intact 14 pg/mL 15-65 low Perfo rmed at: [facility] [place] [id number] Lab Direc tor: Iván watson PhD, Phone : [phone] SENT TO REFER ENCE LAB Not Available [facility] (Lab Registration) [address] , [place], [address], 05/08/2022 12:15:13 05/21/19 23 05/20/2022 urina lysis , dipst ick Leukocytes (reference range) negati ve Not Available [address], [place], [address], 05/20/2022 11:16:40 05/21/19 23 05/20/2022 urina lysis , dipst ick Nitrite (reference range:) negati ve Not Available [address], [address], 05/20/2022 11:16:40 05/21/19 23 05/20/2022 urina lysis , dipst ick Urobilinogen (reference range) 0.2 Not Available [address], [address], 05/20/2022 11:16:40 05/21/19 23 05/20/2022 urina lysis , dipst ick Protein (reference range) negati ve Not Available [address], [address], 05/20/2022 11:16:40 05/21/19 23 05/20/2022 urina lysis , dipst ick pH (reference range 5-8.5) 6.0 Not Available [address], [address], 05/20/2022 11:16:40 05/21/19 23 05/20/2022 urina lysis , dipst ick Blood (reference range:) negati ve Not Available [address], [address], 05/20/2022 11:16:40 05/21/19 23 05/20/2022 urina lysis , dipst ick Specific [place] (reference range) 1.005 Not Available [address], [address], 05/20/2022 11:16:40 05/21/19 23 05/20/2022 urina lysis , dipst ick Ketone (reference range) negati ve Not Available [address], [address], 05/20/2022 11:16:40 03/14/05/20/2022 urina lysis , dipst ick Bilirubin (reference range) negati ve Not Available [address], [address], 05/20/2022 11:16:40 05/21/19 23 05/20/2022 urina lysis , dipst ick Glucose (reference range) negati ve Not Available [address], [address], 05/20/2022 11:16:40 05/21/19 23 05/20/2022 urina lysis , dipst ick Color (reference range: yellow-brown ) Pale Yellow Not Available [address], [address], 05/20/2022 11:16:40 08/07/19 23 08/06/2022 CBC AUTO W DIFF WBC 5.9 10 4.5-11 .5 Not Available [facility] (Lab Registration) [address] [place], [address], 08/06/2022 17:10:35 08/07/19 23 08/06/2022 CBC AUTO W DIFF RBC 4.09 10 4.25-5 .57 low Not Available [facility] (Lab Registration) [address] [place], [address], 08/06/2022 17:10:35 08/07/19 23 08/06/2022 CBC AUTO W DIFF HGB 12.5 g/dL 12.0-1 5.7 Not Available [facility] (Lab Registration) [address] [place], [address], 08/06/2022 17:10:35 08/07/19 23 08/06/2022 CBC AUTO W DIFF HCT 38.8 % 36.0-4 7.0 Not Available [facility] (Lab Registration) [address] [place], [address], 08/06/2022 17:10:35 08/07/19 23 08/06/2022 CBC AUTO W DIFF MCV 94.9 fL 80-95 Not Available [facility] (Lab Registration) [address] [place], [address], 08/06/2022 17:10:35 08/07/19 23 08/06/2022 CBC AUTO W DIFF MCH 30.6 pg 27.0-3 4.0 Not Available [facility] (Lab Registration) [address] [place], [address], 08/06/2022 17:10:35 08/07/19 23 08/06/2022 CBC AUTO W DIFF MCHC 32.2 g/dL 32.0-3 6.0 Not Available [facility] (Lab Registration) [address] [place], [address], 08/06/2022 17:10:35 08/07/19 23 08/06/2022 CBC AUTO W DIFF platelet count 246 10 150-45 0 Not Available [facility] (Lab Registration) [address] [place], [address], 08/06/2022 17:10:35 08/07/19 23 08/06/2022 CBC AUTO W DIFF RDW 12.5 % 12.3-1 5.1 Not Available [facility] (Lab Registration) [address] [place], [address], 08/06/2022 17:10:35 08/07/19 23 08/06/2022 CBC AUTO W DIFF MPV 10.6 fL 7.4-10 .4 high Not Available [facility] (Lab Registration) [address] [place], [address], 08/06/2022 17:10:35 08/07/19 23 08/06/2022 CBC AUTO W DIFF granulocyte% 70.4 % 40-75 Not Available [facility] (Lab Registration) [address] [place], [address], 08/06/2022 17:10:35 08/07/19 23 08/06/2022 CBC AUTO W DIFF lymphocyte% 13.7 % 15-57 low Not Available [facility] (Lab Registration) [address] [place], [address], 08/06/2022 17:10:35 08/07/19 23 08/06/2022 CBC AUTO W DIFF monocyte% 11.5 % 4.0-12 .0 Not Available [facility] (Lab Registration) [address] [place], [address], 08/06/2022 17:10:35 08/07/19 23 08/06/2022 CBC AUTO W DIFF eosinophil% 3.4 % 0.0-4. 0 Not Available [facility] (Lab Registration) [address] [place], [address], 08/06/2022 17:10:35 08/07/19 23 08/06/2022 CBC AUTO W DIFF basophil% 0.7 % 0.0-1. 0 Not Available [facility] (Lab Registration) [address] [place], [address], 08/06/2022 17:10:35 08/07/19 23 08/06/2022 CBC AUTO W DIFF immature granulocytes % 0.3 % 0.0-0. 8 Not Available [facility] (Lab Registration) [address] [place], [address], 08/06/2022 17:10:35 08/07/19 23 08/06/2022 CBC AUTO W DIFF granulocyte# 4.12 10 Not Available [facility] (Lab Registration) [address] [place], [address], 08/06/2022 17:10:35 08/07/19 23 08/06/2022 CBC AUTO W DIFF lymphocyte# 0.80 10 Not Available [facility] (Lab Registration) [address] [place], [address], 08/06/2022 17:10:35 08/07/19 23 08/06/2022 CBC AUTO W DIFF monocyte# 0.67 10 Not Available [facility] (Lab Registration) [address] [place], [address], 08/06/2022 17:10:35 08/07/19 23 08/06/2022 CBC AUTO W DIFF eosinophil# 0.20 10 Not Available [facility] (Lab Registration) [address] [place], [address], 08/06/2022 17:10:35 08/07/19 23 08/06/2022 CBC AUTO W DIFF basophil# 0.04 10 Not Available [facility] (Lab Registration) [address] [place], [address], 08/06/2022 17:10:35 08/07/19 23 08/06/2022 CBC AUTO W DIFF immature granulocytes # 0.02 10 Not Available [facility] (Lab Registration) [address] [place], [address], 08/06/2022 17:10:35 08/07/19 23 08/06/2022 CBC AUTO W DIFF manual differential NO Not Available [facility] (Lab Registration) [address] [place], [address], 08/06/2022 17:10:35 08/07/19 23 08/06/2022 CBC AUTO W DIFF note Unles s other lozoya noted testi ng perfo rmed at: [facility] [address] [place] [address] [phone] Eliezer sultana MD CLIA: [id number] Not Available [facility] (Lab Registration) [address] [place], [address], 08/06/2022 17:10:35 08/07/19 23 08/06/2022 THYRO ID STIMU LATIN G HORMO NE thyroid stimulating hormone 3.85 mIU/m L 0.34-4 .80 Not Available [facility] (Lab Registration) [address] [place], [address], 08/06/2022 17:26:39 08/07/19 23 08/06/2022 THYRO ID STIMU LATIN G HORMO NE note Unles s other lozoya noted testi ng perfo rmed at: [facility] [address] [place] [address] [phone] Eliezer sultana MD CLIA: [id number] Not Available [facility] (Lab Registration) [address] [place], [address], 08/06/2022 17:26:39 08/07/19 23 08/06/2022 T4 FREE T4,free 1.15 NG/mL 0.76-1 .46 Effec tive today 013 new Refer ence Range . Not Available [facility] (Lab Registration) [address] [place], [address], 08/06/2022 17:26:39 08/07/19 23 08/06/2022 T4 FREE note Unles s other lozoya noted testi ng perfo rmed at: [facility] [address] [place] [address] [phone] Eliezer sultana MD CLIA: [id number] [address] Not Available [facility] (Lab Registration) [address] [place], [address], 08/06/2022 17:26:39 08/07/19 23 08/06/2022 COMP METAB OLIC PANEL sodium 140 mmol/ L 136-14 5 Not Available [facility] (Lab Registration) [address] [place], [address], 08/06/2022 17:26:40 08/07/19 23 08/06/2022 COMP METAB OLIC PANEL potassium 4.6 mmol/ L 3.5-5. 1 Not Available [facility] (Lab Registration) [address] [place], [address], 08/06/2022 17:26:40 08/07/19 23 08/06/2022 COMP METAB OLIC PANEL chloride 104 mmol/ L 98-107 Not Available [facility] (Lab Registration) [address] [place], [address], 08/06/2022 17:26:40 08/07/19 23 08/06/2022 COMP METAB OLIC PANEL carbon dioxide 28 mmol/ L 21-32 Not Available [facility] (Lab Registration) [address] [place], [address], 08/06/2022 17:26:40 08/07/19 23 08/06/2022 COMP METAB OLIC PANEL anion gap 8.0 Not Available [facility] (Lab Registration) [address] [place], [address], 08/06/2022 17:26:40 08/07/19 23 08/06/2022 COMP METAB OLIC PANEL glucose 91 mg/dL 70-110 Not Available [facility] (Lab Registration) [address] [place], [address], 08/06/2022 17:26:40 08/07/19 23 08/06/2022 COMP METAB OLIC PANEL blood urea nitrogen 23 mg/dL 7-18 high Not Available [facility] (Lab Registration) [address] [place], [address], 08/06/2022 17:26:40 08/07/19 23 08/06/2022 COMP METAB OLIC PANEL creatinine 1.1 mg/dL 0.6-1. 0 high Not Available [facility] (Lab Registration) [address] [place], [address], 08/06/2022 17:26:40 08/07/19 23 08/06/2022 COMP METAB OLIC PANEL BUN/creatini ne ratio 20.9 ratio 9-21 Not Available [facility] (Lab Registration) [address] [place], [address], 08/06/2022 17:26:40 08/07/19 23 08/06/2022 COMP METAB OLIC PANEL estimated glom filtration rate 51 mL/mi n >60- low Not Available [facility] (Lab Registration) [address] [place], [address], 08/06/2022 17:26:40 08/07/19 23 08/06/2022 COMP METAB OLIC PANEL total protein 7.0 g/dL 6.4-8. 2 Not Available [facility] (Lab Registration) [address] [place], [address], 08/06/2022 17:26:40 08/07/19 23 08/06/2022 COMP METAB OLIC PANEL albumin 3.7 g/dL 3.4-5. 0 Not Available [facility] (Lab Registration) [address] [place], [address], 08/06/2022 17:26:40 08/07/19 23 08/06/2022 COMP METAB OLIC PANEL calcium 9.7 mg/dL 8.5-10 .1 Not Available [facility] (Lab Registration) [address] [place], [address], 08/06/2022 17:26:40 08/07/19 23 08/06/2022 COMP METAB OLIC PANEL corrected calcium 9.9 mg/dL 8.5-10 .1 Not Available [facility] (Lab Registration) [address] [place], [address], 08/06/2022 17:26:40 08/07/19 23 08/06/2022 COMP METAB OLIC PANEL bilirubin total 0.4 mg/dL 0.4-1. 5 Not Available [facility] (Lab Registration) [address] [place], [address], 08/06/2022 17:26:40 08/07/19 23 08/06/2022 COMP METAB OLIC PANEL AST (SGOT) 21 U/L 15-37 Not Available [facility] (Lab Registration) [address] [place], [address], 08/06/2022 17:26:40 08/07/19 23 08/06/2022 COMP METAB OLIC PANEL ALT (SGPT) 28 U/L 12-78 Not Available [facility] (Lab Registration) [address] [place], [address], 08/06/2022 17:26:40 08/07/19 23 08/06/2022 COMP METAB OLIC PANEL alk phosphatase 76 U/L 53-141 Not Available [facility] (Lab Registration) [address] [place], [address], 08/06/2022 17:26:40 08/07/19 23 08/06/2022 COMP METAB OLIC PANEL note Unles s other lozoya noted testi ng perfo rmed at: [facility] [address] [place] [address] [phone] Eliezer sultana MD CLIA: [id number] Not Available [facility] (Lab Registration) [address], [place], [address], 08/06/2022 17:26:40 11/14/19 23 11/13/2022 UA AND MICRO /CULT IF INDIC ATED color yellow yellow Not Available [facility] (Lab Registration) [address] [place], [address], 11/13/2022 13:42:57 11/14/19 23 11/13/2022 UA AND MICRO /CULT IF INDIC ATED appearance clear clear Not Available [facility] (Lab Registration) [address] [place], [address], 11/13/2022 13:42:57 11/14/19 23 11/13/2022 UA AND MICRO /CULT IF INDIC ATED glucose NORM normal Not Available [facility] (Lab Registration) [address] [place], [address], 11/13/2022 13:42:57 11/14/19 23 11/13/2022 UA AND MICRO /CULT IF INDIC ATED bilirubin NEGATI VE negati ve Not Available [facility] (Lab Registration) [address] [place], [address], 11/13/2022 13:42:57 11/14/19 23 11/13/2022 UA AND MICRO /CULT IF INDIC ATED ketone NEGATI VE mg/dL negati ve Not Available [facility] (Lab Registration) [address] [place], [address], 11/13/2022 13:42:57 11/14/19 23 11/13/2022 UA AND MICRO /CULT IF INDIC ATED specific gravity 1.010 1.005- 1.035 Not Available [facility] (Lab Registration) [address] [place], [address], 11/13/2022 13:42:57 11/14/19 23 11/13/2022 UA AND MICRO /CULT IF INDIC ATED blood NEGATI VE /mcL negati ve Not Available [facility] (Lab Registration) [address] [place], [address], 11/13/2022 13:42:57 11/14/19 23 11/13/2022 UA AND MICRO /CULT IF INDIC ATED pH 7.00 5.0-7. 5 Not Available [facility] (Lab Registration) [address] [place], [address], 11/13/2022 13:42:57 11/14/19 23 11/13/2022 UA AND MICRO /CULT IF INDIC ATED protein NEGATI VE mg/dL negati ve Not Available [facility] (Lab Registration) [address] [place], [address], 11/13/2022 13:42:57 11/14/19 23 11/13/2022 UA AND MICRO /CULT IF INDIC ATED urobilnogen NORM mg/dL normal Not Available [facility] (Lab Registration) [address] [place], [address], 11/13/2022 13:42:57 11/14/19 23 11/13/2022 UA AND MICRO /CULT IF INDIC ATED nitrite NEGATI VE negati ve Not Available [facility] (Lab Registration) [address], [place], [address], 11/13/2022 13:42:57 11/14/19 23 11/13/2022 UA AND MICRO /CULT IF INDIC ATED leukocyte esterase NEGATI VE /mcL negati ve Not Available [facility] (Lab Registration) [address] [place], [address], 11/13/2022 13:42:57 11/14/19 23 11/13/2022 UA AND MICRO /CULT IF INDIC ATED culture? NOT REQUIR ED Not Available [facility] (Lab Registration) [address] [place], [address], 11/13/2022 13:42:57 11/14/19 23 11/13/2022 UA AND MICRO /CULT IF INDIC ATED urine microscopic NO Not Available [facility] (Lab Registration) [address] [place], [address], 11/13/2022 13:42:57 11/14/19 23 11/13/2022 UA AND MICRO /CULT IF INDIC ATED note Unles s other lozoya noted testi ng perfo rmed at: [facility] [address] [place] [address] [phone] Eliezer sultana MD CLIA: [id number] Not Available [facility] (Lab Registration) [address] [place], [address], 11/13/2022 13:42:57 11/14/19 23 11/13/2022 PROTE IN/CR EATIN INE URINE total protein urine 5 mg/dL 0.0-15 .0 Not Available [facility] (Lab Registration) [address] [place], [address], 11/13/2022 13:47:27 11/14/19 23 11/13/2022 PROTE IN/CR EATIN INE URINE creatinine urine 21.9 mg/dL 30-125 low Not Available [facility] (Lab Registration) [address] [place], [address], 11/13/2022 13:47:27 11/14/19 23 11/13/2022 PROTE IN/CR EATIN INE URINE total protein/crea tinine ratio 228 ratio 0-200 high Not Available [facility] (Lab Registration) [address] [place], [address], 11/13/2022 13:47:27 11/14/19 23 11/13/2022 PROTE IN/CR EATIN INE URINE note Unles s other lozoya noted testi ng perfo rmed at: [facility] [employer] [place] [address] [phone] Eliezer sultana MD CLIA: [id number] Not Available [facility] (Lab Registration) [address] [place], [address], 11/13/2022 13:47:27 11/14/19 23 11/13/2022 CBC AUTO W DIFF WBC 5.7 10 4.5-11 .5 Not Available [facility] (Lab Registration) [address] [place], [address], 11/13/2022 13:51:57 11/14/19 23 11/13/2022 CBC AUTO W DIFF RBC 4.16 10 4.25-5 .57 low Not Available [facility] (Lab Registration) [address] [place], [address], 11/13/2022 13:51:57 11/14/19 23 11/13/2022 CBC AUTO W DIFF HGB 12.9 g/dL 12.0-1 5.7 Not Available [facility] (Lab Registration) [address] [place], [address], 11/13/2022 13:51:57 11/14/19 23 11/13/2022 CBC AUTO W DIFF HCT 39.6 % 36.0-4 7.0 Not Available [facility] (Lab Registration) [address] [place], [address], 11/13/2022 13:51:57 11/14/19 23 11/13/2022 CBC AUTO W DIFF MCV 95.2 fL 80-95 high Not Available [facility] (Lab Registration) [address] [place], [address], 11/13/2022 13:51:57 11/14/19 23 11/13/2022 CBC AUTO W DIFF MCH 31.0 pg 27.0-3 4.0 Not Available [facility] (Lab Registration) [address] [place], [address], 11/13/2022 13:51:57 11/14/19 23 11/13/2022 CBC AUTO W DIFF MCHC 32.6 g/dL 32.0-3 6.0 Not Available [facility] (Lab Registration) [address] [place], [address], 11/13/2022 13:51:57 11/14/19 23 11/13/2022 CBC AUTO W DIFF platelet count 215 10 150-45 0 Not Available [facility] (Lab Registration) [address] [place], [address], 11/13/2022 13:51:57 11/14/19 23 11/13/2022 CBC AUTO W DIFF RDW 12.2 % 12.3-1 5.1 low Not Available [facility] (Lab Registration) [address] [place], [address], 11/13/2022 13:51:57 11/14/19 23 11/13/2022 CBC AUTO W DIFF MPV 11.3 fL 7.4-10 .4 high Not Available [facility] (Lab Registration) [address] [place], [address], 11/13/2022 13:51:57 11/14/19 23 11/13/2022 CBC AUTO W DIFF granulocyte% 61.5 % 40-75 Not Available [facility] (Lab Registration) [address] [place], [address], 11/13/2022 13:51:57 11/14/19 23 11/13/2022 CBC AUTO W DIFF lymphocyte% 20.7 % 15-57 Not Available [facility] (Lab Registration) [address] [place], [address], 11/13/2022 13:51:57 11/14/19 23 11/13/2022 CBC AUTO W DIFF monocyte% 12.3 % 4.0-12 .0 high Not Available [facility] (Lab Registration) [address] [place], [address], 11/13/2022 13:51:57 11/14/19 23 11/13/2022 CBC AUTO W DIFF eosinophil% 4.6 % 0.0-4. 0 high Not Available [facility] (Lab Registration) [address] [place], [address], 11/13/2022 13:51:57 11/14/19 23 11/13/2022 CBC AUTO W DIFF basophil% 0.5 % 0.0-1. 0 Not Available [facility] (Lab Registration) [address] [place], [address], 11/13/2022 13:51:57 11/14/19 23 11/13/2022 CBC AUTO W DIFF immature granulocytes % 0.4 % 0.0-0. 8 Not Available [facility] (Lab Registration) [address] [place], [address], 11/13/2022 13:51:57 11/14/19 23 11/13/2022 CBC AUTO W DIFF granulocyte# 3.52 10 Not Available [facility] (Lab Registration) [address] [place], [address], 11/13/2022 13:51:57 11/14/19 23 11/13/2022 CBC AUTO W DIFF lymphocyte# 1.18 10 Not Available [facility] (Lab Registration) [address] [place], [address], 11/13/2022 13:51:57 11/14/19 23 11/13/2022 CBC AUTO W DIFF monocyte# 0.70 10 Not Available [facility] (Lab Registration) [address] [place], [address], 11/13/2022 13:51:57 11/14/19 23 11/13/2022 CBC AUTO W DIFF eosinophil# 0.26 10 Not Available [facility] (Lab Registration) [address] [place], [address], 11/13/2022 13:51:57 11/14/19 23 11/13/2022 CBC AUTO W DIFF basophil# 0.03 10 Not Available [facility] (Lab Registration) [address] [place], [address], 11/13/2022 13:51:57 11/14/19 23 11/13/2022 CBC AUTO W DIFF immature granulocytes # 0.02 10 Not Available [facility] (Lab Registration) [address] [place], [address], 11/13/2022 13:51:57 11/14/19 23 11/13/2022 CBC AUTO W DIFF manual differential NO Not Available [facility] (Lab Registration) [address] [place], [address], 11/13/2022 13:51:57 11/14/19 23 11/13/2022 CBC AUTO W DIFF note Unles s other lozoya noted testi ng perfo rmed at: [facility] [address] [place] [address] [phone] Eliezer sultana MD CLIA: [id number] Not Available [facility] (Lab Registration) [address] [place], [address], 11/13/2022 13:51:57 11/14/19 23 11/13/2022 VITAM IN D TOTAL (D2+D 3) vitamin D25 (D2+D3) 50.4 NG/mL 30-100 Not Available [facility] (Lab Registration) [address] [place], [address], 11/13/2022 14:29:07 11/14/19 23 11/13/2022 VITAM IN D TOTAL (D2+D 3) note Unles s other lozoya noted testi ng perfo rmed at: [facility] [place] [address] [phone] Eliezer sultana MD CLIA: [id number] Not Available [facility] (Lab Registration) [address] [place], [address], 11/13/2022 14:29:07 11/14/19 23 11/13/2022 COMP METAB OLIC PANEL sodium 142 mmol/ L 136-14 5 Not Available [facility] (Lab Registration) [address] [place], [address], 11/13/2022 14:29:08 11/14/19 23 11/13/2022 COMP METAB OLIC PANEL potassium 4.4 mmol/ L 3.5-5. 1 Not Available [facility] (Lab Registration) [address] [place], [address], 11/13/2022 14:29:08 11/14/19 23 11/13/2022 COMP METAB OLIC PANEL chloride 105 mmol/ L 98-107 Not Available [facility] (Lab Registration) [address] [place], [address], 11/13/2022 14:29:08 11/14/19 23 11/13/2022 COMP METAB OLIC PANEL carbon dioxide 30 mmol/ L 21-32 Not Available [facility] (Lab Registration) [address] [place], [address], 11/13/2022 14:29:08 11/14/19 23 11/13/2022 COMP METAB OLIC PANEL anion gap 7.0 Not Available [facility] (Lab Registration) [address] [place], [address], 11/13/2022 14:29:08 11/14/19 23 11/13/2022 COMP METAB OLIC PANEL glucose 88 mg/dL 70-110 Not Available [facility] (Lab Registration) [address] [place], [address], 11/13/2022 14:29:08 11/14/19 23 11/13/2022 COMP METAB OLIC PANEL blood urea nitrogen 20 mg/dL 7-18 high Not Available [facility] (Lab Registration) [address] [place], [address], 11/13/2022 14:29:08 11/14/19 23 11/13/2022 COMP METAB OLIC PANEL creatinine 1.1 mg/dL 0.6-1. 0 high Not Available [facility] (Lab Registration) [address] [place], [address], 11/13/2022 14:29:08 11/14/19 23 11/13/2022 COMP METAB OLIC PANEL BUN/creatini ne ratio 18.2 ratio 9-21 Not Available [facility] (Lab Registration) [address] [place], [address], 11/13/2022 14:29:08 11/14/19 23 11/13/2022 COMP METAB OLIC PANEL estimated glom filtration rate 51 mL/mi n >60- low Not Available [facility] (Lab Registration) [address] [place], [address], 11/13/2022 14:29:08 11/14/19 23 11/13/2022 COMP METAB OLIC PANEL total protein 6.8 g/dL 6.4-8. 2 Not Available [facility] (Lab Registration) [address] [place], [address], 11/13/2022 14:29:08 11/14/19 23 11/13/2022 COMP METAB OLIC PANEL albumin 3.7 g/dL 3.4-5. 0 Not Available [facility] (Lab Registration) [address] [place], [address], 11/13/2022 14:29:08 11/14/19 23 11/13/2022 COMP METAB OLIC PANEL calcium 9.2 mg/dL 8.5-10 .1 Not Available [facility] (Lab Registration) [address] [place], [address], 11/13/2022 14:29:08 11/14/19 23 11/13/2022 COMP METAB OLIC PANEL corrected calcium 9.4 mg/dL 8.5-10 .1 Not Available [facility] (Lab Registration) [address] [place], [address], 11/13/2022 14:29:08 11/14/19 23 11/13/2022 COMP METAB OLIC PANEL bilirubin total 0.5 mg/dL 0.4-1. 5 Not Available [facility] (Lab Registration) [address] [place], [address], 11/13/2022 14:29:08 11/14/19 23 11/13/2022 COMP METAB OLIC PANEL AST (SGOT) 17 U/L 15-37 Not Available [facility] (Lab Registration) [address] [place], [address], 11/13/2022 14:29:08 11/14/19 23 11/13/2022 COMP METAB OLIC PANEL ALT (SGPT) 22 U/L 12-78 Not Available [facility] (Lab Registration) [address] [place], [address], 11/13/2022 14:29:08 11/14/19 23 11/13/2022 COMP METAB OLIC PANEL alk phosphatase 98 U/L 53-141 Not Available [facility] (Lab Registration) [address] [place], [address], 11/13/2022 14:29:08 11/14/19 23 11/13/2022 COMP METAB OLIC PANEL note Unles s other lozoya noted testi ng perfo rmed at: [facility] [address] [place] [address] [phone] Eliezer sultana MD CLIA: [id number] Not Available [facility] (Lab Registration) [address] [place], [address], 11/13/2022 14:29:08 11/14/19 23 11/13/2022 URIC ACID uric acid 5.5 mg/dL 2.2-7. 7 Not Available [facility] (Lab Registration) [address] [place], [address], 11/13/2022 14:29:10 11/14/19 23 11/13/2022 URIC ACID note Unles s other lozoya noted testi ng perfo rmed at: [facility] [address] [place] [address] [phone] Eliezer sultana MD CLIA: [id number] Not Available [facility] (Lab Registration) [address] [place], [address], 11/13/2022 14:29:10 11/14/19 23 11/13/2022 PTH INTAC T note Unles s other lozoya noted testi ng perfo rmed at: [facility] [address] [place] [address] [phone] Eliezer sultana MD CLIA: [id number] Not Available [facility] (Lab Registration) [address] [place], [address], 11/15/2022 13:10:34 11/14/19 23 11/15/2022 PTH INTAC T PTH, intact 17 pg/mL 15-65 Perfo rmed at: [facility] [address], [place] [address] 126 Lab Direc tor: Iván watson PhD, Phone : [phone] SENT TO REFER ENCE LAB Not Available [facility] (Lab Registration) [address], [place], [address], 11/15/2022 13:10:34 01/21/20 23 10/21/2017 colon oscop y proce dure (PROC ) No observ ation record ed. [email or web address] Not Available 2022 14:45:43 07/12/19 24 07/12/2023 imagi ng/di agnos tic resul t No observ ation record ed. [id number] [facility] [address] [address], [place], [address], 07/12/2023 12:43:58 10/19/19 24 10/19/2023 imagi ng/di agnos tic resul t No observ ation record ed. [facility] [address] [facility] [address], [place], [address], 10/19/2023 16:20:57 04/20/19 25 04/20/2024 imagi ng/di agnos tic resul t No observ ation record ed. [facility] [address] [facility] [address], [place], [address], 04/20/2024 15:43:42 04/20/19 25 04/20/2024 imagi ng/di agnos tic resul t No observ ation record ed. [id number] [facility] [address], [place], [address], 04/20/2024 15:44:53 04/20/19 25 04/20/2024 neili celeste/amena powers tic resul t No observ ation record ed. [facility] [address], [place], [address], 04/20/2024 15:59:03 Result Notes None recorded. Problems Name Problem SNOMED Code Status Onset Date Resolution Date Notes Provider Name and Address Organization Details Recorded Time Hyperlipidemia 81853542 Active 2021 Deb [place], [place] [facility] [place] & [place] 2 07:12:34 Essential hypertension 99993160 Active 2021 Deb [place] [facility] [place] 2 07:12:39 Irritable bowel syndrome 20336249 Active 2021 Deb [place] [facility] [place] 2 07:12:44 Gastroesophage al reflux disease 103331111 Active 2021 Deb [place] [facility] [place] 2 07:12:49 Diverticulosis of colon 513811354 Active 2021 Deb [place] [facility] [place] 2 07:13:01 Urinary incontinence 055014871 Active 2021 Deb [place] [facility] [place] 2 07:13:10 Chronic pain 42336729 Active 2021 Deb [place] [facility] [place] 2 07:13:16 Osteoarthritis 796112553 Active 2021 Deb [place] [facility] [place] 2 07:13:27 Allergic rhinitis 59792310 Active 2021 Deb [place] [facility] [place] 07:13:35 [facility] 43527404 Active 2021 Deb jewell [place] - [facility] - [place] & [place] 07:13:43 Problem Notes None recorded. Procedures Surgical History Date Name Laterality Status Provider Name and Address Organization Details Recorded Time 01/02/20 22 Most Recent Mammogram completed Coby Antonio [place] - [facility] - [place] & [place] 06/26/2023 11:22:23 01/02/20 22 Most Recent Bone Density completed Coby Antonio [place] - [facility] - [place] & [place] 06/26/2023 11:22:29 12/19/19 22 Medicare Annual Wellness Visit Health Risk Assessment completed Nya Romero [place] - [facility] - [place] & [place] 12/18/2021 16:32:33 05/15/19 21 initial implantation of cardiac dual-chamber device completed Deb MILLIGAN - [facility] - [place] & [place] 12/18/2021 07:19:52 03/12/19 20 arthroscopy of knee completed Deb MILLIGAN - [facility] - [place] & [place] 12/18/2021 07:18:31 03/10/19 20 total shoulder replacement completed Deb MILLIGAN - [facility] - [place] & [place] 12/18/2021 07:18:51 10/22/19 18 Date of Last Colonoscopy completed Harrietyonis MILLIGAN - [facility] - [place] & [place] 06/26/2023 11:22:40 10/22/19 18 colonoscopy completed Aurora MILLIGAN - [facility] - [place] & [place] 01/20/2023 14:48:21 05/08/19 13 colonoscopy completed Deb MILLIGAN - [facility] - [place] & [place] 12/18/2021 07:17:47 surgical procedure completed Harrietluis chandra [place] - [facility] - [place] & [place] 06/26/2023 11:22:10 excision of bunion completed Leslie MILLIGAN - [facility] - [place] & [place] 12/18/2021 07:16:56 Cholecystectomy completed Deb MILLIGAN - [facility] - [place] & [place] 12/18/2021 07:17:08 hammer toe operation completed Deb [facility] 12/18/2021 07:17:[address] [facility] 12/18/2021 07:19:[address] [facility] 12/18/2021 07:19:10 bilateral extraction of cataracts completed [facility] 12/18/2021 07:19:24 Imaging Results Imaging Date Name Status LastModified by Organiz ation Details LastModified Time 10/21/2017 colonoscopy procedure (PROC) completed [email or web address] Information not available 01/20/2023 14:45:43 07/12/2023 imaging/diagnos tic result active [facility] [address], [place], [address], 07/12/2023 12:43:58 10/19/2023 imaging/diagnos tic result active [facility] [address], [place], [address], 10/19/2023 16:20:57 04/20/2024 imaging/diagnos tic result active [facility] [address], [place], [place], [address], 04/20/2024 15:43:42 04/20/2024 imaging/diagnos tic result active [facility] [address], [place], [address], 04/20/2024 15:44:53 04/20/2024 imaging/diagnos tic result active [facility] [address], [place], [address], 04/20/2024 15:59:03 Procedure Notes None recorded. Medical Equipment None Reported. Allergies Allergen ID Allergen Name Allergen Category Reaction Reaction Severity Criticality Documentation Date Start Date Code Code System Note Provider Name and Address Organization Details Recorded Time 126997 Product containin g penicilli n (product) medicatio n Not available Not available Not available 06/26/2023 06181 8001 SNOMED [place] Antonio [facility], [facility] & [place] 4 11:23:43 76253 Amoxil medicatio n swelling Not available Not available 12/18/202185201 9 RxNorm Deb jewell, [place] [facility] [place] 2 07:10:48 56440 Substance with sulfonami de structure and antibacte rial mechanism of action (substanc e) medicatio n swelling Not available Not available 12/18/2021 72772 8003 SNOMED Deb Back [facility], [facility] & [place] 2 07:10:58 Medications Name Sig Start Date Stop Date Status Note LastModified by Organization Details LastModified Time amoxicillin 500 mg capsule TAKE FOUR CAPSULES BY MOUTH ONE HOUR BEFORE APPOINTME NT active Not Available Not Available No t Available labetalol 200 mg tablet TAKE 2 TABLETS BY MOUTH TWICE DAILY active Not Available Not Available No t Available azithromyci n 250 mg tablet 12/18 completed Not Available Not Available Not Available metoprolol succinate ER 50 mg tablet,exte nded release 24 hr 03/28 completed Not Available Not Available Not Available meloxicam 15 mg tablet 05/20 completed Not Available Not Available Not Available ondansetron HCl 4 mg tablet 03/28 completed Not Available Not Available Not Available metoprolol succinate ER 100 mg tablet,exte nded release 24 hr 05/20 completed Not Available Not Available Not Available clindamycin HCl 150 mg capsule TAKE 4 CAPSULES BY MOUTH 1 HOUR PRIOR TO APPOINTME NT. 12/18 completed Not Available Not Available Not Available amlodipine 5 mg tablet 05/20 completed Not Available Not Available Not Available ciprofloxac in 500 mg tablet TAKE 1 TABLET BY MOUTH EVERY 12 HOURS 12/18 completed Not Available Not Available Not Available tramadol 50 mg tablet 03/28 completed Not Available Not Available Not Available pantoprazol e 20 mg tablet,natalya yed release TAKE 1 TABLET BY MOUTH ONCE DAILY active Not Available Not Available No t Available cefadroxil 500 mg capsule 03/28 completed Not Available Not Available Not Available nifedipine ER 60 mg tablet,exte nded release 24 hr active Not Available Not Available Not Available amlodipine 10 mg tablet Take 1 tablet by mouth daily 05/20 completed Not Available Not Available Not Available Synthroid 50 mcg tablet Take 1 tablet every day by oral route for 90 days. active Not Available Not Available No t Available diclofenac sodium 75 mg tablet,natalya yed release 05/20 completed Not Available Not Available Not Available hydroxyzine HCl 25 mg tablet TAKE 1/2 TO 1 (ONE-HALF TO ONE) TABLET BY MOUTH EVERY 8 HOURS NEEDED FOR 30 DAYS 05/20 completed Not Available Not Available Not Available hydralazine 50 mg tablet 05/20 completed Not Available Not Available Not Available furosemide 20 mg tablet every other day 05/20 completed Not Available Not Available Not Available labetalol 300 mg tablet TAKE 1 TABLET BY MOUTH TWICE DAILY 11/13 completed Not Available Not Available Not Available lovastatin 20 mg tablet TAKE 1 TABLET EVERY DAY active Not Available Not Available No t Available benazepril 40 mg tablet TAKE 1 TABLET EVERY DAY 03/28 completed Not Available Not Available Not Available ondansetron 4 mg disintegrat ing tablet DISSOLVE 1 TABLET IN MOUTH TWICE DAILY FOR 7 DAYS 11/13 completed Not Available Not Available Not Available fluticasone propionate 50 mcg/actuati on nasal spray,suspe nsion USE 1 SPRAY(S) IN EACH NOSTRIL ONCE DAILY active Not Available Not Available No t Available dicyclomine 10 mg capsule TAKE 1 CAPSULE BY MOUTH THREE TIMES DAILY FOR 5 DAYS 11/13 completed Not Available Not Available Not Available oxycodone 5 mg tablet 03/28 completed Not Available Not Available Not Available Durolane 60 mg/3 mL intra-artic ular syringe 05/20 completed Not Available Not Available Not Available Vitals Date Recorded Body height Body mass index (BMI) Body weight Body temperature Oxygen saturation Oxygen saturation in Arterial blood by Pulse oximetry Heart rate Systolic blood pressure Diastolic blood pressure Provider Name and Address Organization Details Last Updated DateTime 3 158.75 cm 29.7 kg/m2 06743.7 4 g 97.3 [degF] 94 % 94 % 77 /min 122 mm[Hg] 74 mm[Hg] Nya Short [place] - [facility] & [place] 3 09:32:13 Date Recorded Body height Body mass index (BMI) Body weight Body temperature Oxygen saturation Oxygen saturation in Arterial blood by Pulse oximetry Heart rate Respiratory rate Systolic blood pressure Diastolic blood pressure Provider Name and Address Organization Details Last Updated DateTime 3 158.75 cm 30.2 kg/m2 55038.5 2 g 97.6 [degF] 96 % 96 % 71 /min 16 /min 182 mm[Hg] 85 mm[Hg] [facility] [place] [facility] & [place] 3 10:39:10 Date Recorded Body height Body mass index (BMI) Body weight Body temperature Oxygen saturation Oxygen saturation in Arterial blood by Pulse oximetry Heart rate Respiratory rate Systolic blood pressure Diastolic blood pressure Provider Name and Address Organization Details Last Updated DateTime 3 158.75 cm 30.6 kg/m2 45540.7 g 97.8 [degF] 98 % 98 % 74 /min 16 /min 156 mm[Hg] 90 mm[Hg] [facility] [place] [facility] [place] [facility] & [place] 3 11:14:19 Social History None recorded. Functional Status Question Answer Note LastModified by Organization D etails LastModified Time What is your level of alcohol consumption? None [email or web address] Information not available 12/18/2021 Mental Status None recorded. Family History Relationship Description Onset Age of this Age Resolved Age Notes LastModified by Organization Details LastModified Time Mother Sepsis deceas ed [email or web address] Not available 12/18/2021 07:13:59 Mother Myocardial infarction [email or web address] Not available 06/25 11:24:44 Mother Essential hypertension [email or web address] Not available 11:24:58 Mother Arthritis [email or web address] Not availabl e 06/26/2023 11:25:10 Father Alcoholism deceas ed [email or web address] Not available 12/18/2021 07:14:14 Father Tuberculosis deceas ed [email or web address] Not available 12/18/2021 07:14:29 Brother Accidental physical contact dece ed. sleigh riding [email or web address] Not available 12/18/2021 07:14:54 Brother Hepatic sclerosis deceas ed [email or web address] Not available 12/18/2021 07:15:12 Brother Essential hypertension [email or web address] Not available 02/2022 07:15:43 Sister Essential hypertension [email or web address] Not available 02/2022 07:15:43 Sister Essential hypertension [email or web address] Not available 02/2022 07:15:43 Sister Meningitis deceas ed [email or web address] Not available 12/18/2021 07:16:00 Sister Arthritis [email or web address] Not availab le 12/18/2021 07:16:12 Sister Arthritis [email or web address] Not availab le 12/18/2021 07:16:24 Daughter Essential hypertension [email or web address] Not available 02/2022 07:15:43 Daughter Migraine [email or web address] Not availa ble 12/18/2021 07:16:34 Medical History Condition Response Allergies/Hayfever Y Arthritis Y Reflux/GERD Y Hypertension Y High Cholesterol Y Gynecological History Statement/Question Response Most Recent Mammogram 01/01/2022 Date of Last Colonoscopy 10/21/2017 Most Recent Bone Density 01/01/2022 Obstetrics History GPAL:G 0 P 0 0 0 0 Immunizations Vaccine Type Date Status Note Provider Nam e and Address Organization Details Recorded Time Hep A, adult 8 completed Deb Back null, [place] - [facility] - [place] & [place] 12/18/2021 07:11:29 Hep A, adult 9 completed Nya Heather null, [place] [facility] - [place] & [place] 08/06/2022 09:32:33 pneumococcal polysaccharide PPV23 8 completed Nya Heather null, [place] [facility] & [place] 08/06/2022 09:32:33 pneumococcal polysaccharide PPV23 3 completed Nya Heather null[place] [facility] & [place] 08/06/2022 09:32:33 Pneumococcal conjugate PCV 13 4 completed Nya Heather null[place] [facility] & [place] 08/06/2022 09:32:33 Td (adult) 2 completed Nya Romero null, [place] [facility] - [place] & [place] 08/06/2022 09:32:33 Td (adult) 2 completed Nya Short null[place] [facility] [place] & [place] 08/06/2022 09:32:33 Influenza, high-dose, quadrivalent, PF 3 completed Gianna Zheng APRN [address] [place], [address], [place] [facility] [place] & [place] 12/03/2022 12:14:24 Pneumococcal conjugate PCV20, polysaccharide NRL003 conjugate, adjuvant, PF 3 completed Gianna Zheng APRN [address] [place], [address], [place] - [facility] - [place] & [place] 12/03/2022 12:14:24 Influenza, high-dose, quadrivalent, PF 2 completed Gianna Zheng APRN [address] [place], [address], [place] [facility] - [place] & [place] 12/18/2021 17:33:22 Influenza, adjuvanted, trivalent, PF 0 completed Nya Short null, [place] - [facility] & [place] 08/06/2022 09:32:33 COVID-19, mRNA, LNP-S, PF, 30 mcg/0.3 mL dose 1 completed Nya Short null, [place] [facility] & [place] 08/06/2022 09:32:33 COVID-19, mRNA, LNP-S, PF, 30 mcg/0.3 mL dose 1 completed Nya Short null, [place] [facility] - [place] & [place] 08/06/2022 09:32:33 COVID-19, mRNA, LNP-S, PF, 30 mcg/0.3 mL dose 1 completed Nya Short null, [place] [facility] - [place] & [place] 08/06/2022 09:32:33 COVID-19, mRNA, LNP-S, PF, 30 mcg/0.3 mL dose, ksenia-sucrose 2 completed Nya Short null, [place] [facility] - [place] & [place] 08/06/2022 09:32:33 Influenza, high-dose, trivalent, PF 1 completed SRINI Zarate - [facility] - [place] & [place] 08/06/2022 09:32:33 Past Encounters Encounter ID Performer Location Encounter Start Date Encounter Closed Date Diagnosis/Indication Diagnosis SNOMED-CT Code Diagnosis ICD10 Code Diagnosis Note [id number] Gianna Zheng APRN [address] [address] 12/18/2021 08:59:59 12/18/2021 10:05:13 Active or passive immunization 711144049 Z23 Adult heal th examination 675296662 Z00.00 I10 educated on preventati ve caredeclin es further colon ca screeningf servando shot todayUTD on other vaccinesin crease water intakemoni tor for acute illnesses. Monitor BP daily Screening for cardiovascular system disease 191921511 Z13.6 cholestero l ordered Screening for osteoporosis 905111281 Z13.820 Screening mammography 24 205680 Z12.31 ordering mammogram Acquired hypothyroidism 800235331 E03.9 ordering thyroid function Body mass index 30+ - obesity 413067738 Z68.31 Fatigue 98245314 R53.83 [id number] Gianna Zheng APRN [address] [address] 03/21/2022 12:00:02 03/21/2022 13:05:33 Nausea 696253686 R11.[address] abd ordered. Essential hypertension 79063251 I10 was increased to 100mg TID of hydralazin e, feels this is making her nauseous.g oing to decrease to 50mg in the morning and afternoon and 100mg at bedtimeinc reasing amlodipine to 10mg once a day [id number] Gianna Zheng APRN [address] [address] 05/06/2022 10:30:04 05/06/2022 13:55:25 Acquired hypothyroidism 876399008 E03.9 Essential hypertension 78035852 I10 blood drawn in the right AC by Nya Romero CMA patient tolerated well. [id number] Gianna Zheng APRN [email or web address] [address] [place] [address] 05/20/2022 10:53:59 05/20/2022 13:36:43 Increased frequency of urination 829286188 R35.0 increase water intakemoni tor for worsening symptoms Essential hypertension 73057212 I10 monitor BP 2 times a day over the next 2 weekscall clinic if BP is 150/80 or highertake labetalol as prescribed .decrease sodium intake [id number] Gianna Zheng APRN [address] [place] [id number] 08/06/2022 09:25:07 08/06/2022 12:44:55 Nausea and vomiting 78681610 R11.2 R10.9 Patient was seen in the office today for nausea. Reviewed history regarding recent illness, medication s, symptoms, and physical exam. Studies ordered as below. Discussed plan with {{patient* family pa tient and family car egiver pat ient and caregiver} }, who expresses understand ing. Follow up as noted below. Hypothyroidism 69868953 E03.9 R53.83 blood drawn in the right AC by Nya Romero CMA, patient tolerated well. rechecking bloodworkm onitor for worsening symptomsin crease water intaketake medication on empty stomach 30 mins before eating or drinking in the am [id number] Gianna Zheng APRN [address] [place] [address] 11/13/2022 10:26:23 11/13/2022 12:43:50 Chronic kidney disease stage 3 038459988 N18.[address] Fisher Essential hypertension 75748021 I10 monitor BP 2 times a day over the next 2 weekscall clinic if BP is 150/80 or highertake labetalol as prescribed .decrease sodium intake [id number] Gianna Zheng APRN [address] [place] [address] 12/03/2022 10:52:35 12/03/2022 11:51:58 Influenza vaccine needed 0786469423 106 Z23 Administra tion of pneumococcal vaccine 02364933 Z23 Essential hypertension 93642420 I10 monitor BP 2 times a day over the next 2 weekscall clinic if BP is 150/80 or highertake labetalol as prescribed .decrease sodium [place] [address] 30199 90258 Z23 Health Concerns Section Related Observation LastModified by Organization Detlindy ls LastModified Time None Recorded Concern Status LastModified by Organization Details LastModified Time None Recorded Advance Directives Directive None Recorded Payers Insurance Date Sequence Insurance Name Policy Number Policy Burnett Covered Member ID Burnett Member ID Guarantor Name 09/26/2023 1 *SELF PAY* Ca Notes Date Note Type Note Provider Name and Address Organization Details Recorded Time 05/20/2022 text/html Lower Urinary Tr act Symptoms (LUTS)Reported bypatient.[facility] Quality:dull Severity:mild Onset/Timing:constan t Duration:acute Context:denies excessive fluid intake; denies excessive caffeine intake; no dyspareunia; denies new medication treatment Associated Symptoms:no abdominal pain; no groin pain; no pelvic pain; no flank pain; no low back pain; no chills; no fever; no constipation; no diarrhea; no nausea; no vomiting; no temperaure; good force of stream; no straining; no post void dribbling; no hesitancy; empties well; no incontinence; no perineal pain; no suprapubic pain; no costovertebral angle tenderness; no nocturia; no urine odor; no gross hematuria; no abnormal vaginal discharge; no vaginal itching or burning;urgency;freq uency;dysuria 81 y/o female that presents to the clinic for urinary frequency. Has been seen by Dr Fisher, nephrology for kidney disease. She reports he is taking her off most medications and replacing with labetolol 300mg BID due for GFR [id number] Gianna Zheng, LABORATORY HELPER [address] [place], [address] & [place] 05/20/2022 11:17:39 08/06/2022 text/html 82 y/o female th at presents to the clinic for follow up. She has been dealing with nausea, vomiting and diarrhea since Thursday. She was taken off HTN medications by Dr Fisher and started on labetalol 400mg BID. BP has been ranging 120-140-70s. She is very fatigued and experiencing hot flashes. She does take levothyroxine for hypothyroidism. Last check of TSH/T4 was normal back in 12/18/21. Due for recheck. Gianna Zheng APRN [address] [facility], [place], [address], [facility] & [place] 08/06/2022 10:10:52 11/13/2022 text/html 82 y/o female th at presents to the clinic for follow up. Needing bloodwork for Dr Fisher. No acute complaints in the clinic today. She is taking her medications as prescribed within her chart. Gianna Zheng APRN [address] [facility], [place], [address], [facility] & [place] 11/13/2022 12:52:15 12/03/2022 text/html 82 y/o female th at presents to the clinic for follow up. No acute complaints in the clinic today. She is taking her medications as prescribed within her chart. She is needing flu and pneumonia vaccines today. Gianna Zheng APRN [address] [facility], [place], [address], [facility] & [place] 12/03/2022 12:16:30 OBGyn Episode No OBEpisode recorded.
--- NOTE | 2024-07-19 13:40 | HMH.EDGENADL ---
Discharge Plan Disposition Patient Disposition: Home, Self-Care Condition: Good Prescriptions Prescriptions: New atorvastatin 40 mg tablet 40 mg PO DAILY Qty: 30 0RF No Action carvedilol 25 mg tablet 25 mg PO BID Rx Instructions: must administer with a meal/food twice a day multivitamin Tablet 1 tab PO DAILY Rx Instructions: Take 1 tablet by mouth once a day omega 2-cmt-qrk-fish oil [Fish Oil] 1,000 (120-180) mg capsule 1 cap PO DAILY Rx Instructions: Take 1 capsule by mouth once a day aspirin [Adult Low Dose Aspirin] 81 mg tablet,delayed release (DR/EC) 81 mg PO DAILY Rx Instructions: 1 tablet by mouth once a day polyethylene glycol 3350 [Miralax] 17 gram powder in packet 17 g PO DAILY Rx Instructions: 17 grams dissolved in water by mouth once a day acetaminophen [Tylenol Arthritis Pain] 650 mg tablet extended release 650 mg PO Q12H Rx Instructions: 2 tablets at bedtime esomeprazole magnesium [Nexium] 40 mg capsule,delayed release(DR/EC) 40 mg PO DAILY Patient Comments: TAKE 1 CAPSULE BY MOUTH ONCE DAILY IN THE MORNING BEFORE BREAKFAST Rx Instructions: TAKE 1 CAPSULE BY MOUTH ONCE DAILY IN THE MORNING BEFORE BREAKFAST nifedipine 90 mg tablet extended release 24hr 90 mg PO DAILY Metamucil 3.4 gram/5.4 gram powder 1 tbsp PO DAILY Rx Instructions: mix into at least 8 oz of water or juice before administering Adult 50 Plus Probiotic 4 billion cell capsule 4,000 mmu cells PO DAILY Rx Instructions: administer with a meal peg 3350-electrolytes [Golytely] 236-22.74-6.74 -5.86 gram recon soln 240 ml PO Q10M Qty: 4000 0RF Rx Instructions: at 6pm day before surgery take first dose. After mixing prep as directed, drink half of the gallon by drinking 8 ounces, or 1 cup, every 15 mins until half is remaining. refrigerate the remaining and continue clear liquids till midnight. 5-6 hours before exam, take the second dosage, 8oz every 15 mins till gone. levothyroxine [Synthroid] 50 mcg tablet 50 mcg PO DAILY Referrals Follow up/Referrals: Gianna Zheng APRN [Primary Care Provider] - See instructions Activity Restrictions/Add. Instructions Additional Instructions/Restrictions: At this time it was felt you are safe to be discharged home. If new or worsening symptoms please do not hesitate to return the emergency department. It is possible that you have had a small stroke causing sensory changes in the left side your face as we talked about today, please follow-up with your family doctor soon as you are able so they can obtain an MRI on an outpatient basis and refer you to vascular surgery at 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 If you cannot get referred to [facility] should call you to see you in their clinic. I am sending you home with a cholesterol medicine that you will take every day in addition to your daily aspirin. Clinical Impressions Clinical Impression: Facial paresthesia, Carotid artery dissection Print Language Print Language: French Discharge ED Provider: Dakota Owens General Adult HPI <SASKIA Grier - Last Filed: 07/19/24 20:49> General Chief complaint: Recheck/Abnormal Lab/Rx Stated complaint: Elevated blood pressure Time Seen by Provider: 07/19/24 13:28 Mode of Arrival: Ambulatory Source of Information: Patient Description of Symptoms (Recalled from ER Triage Doc. by RN): pt presents to ED with c/o high blood pressure reading. pt reports that her blood pressure has been reading higher than normal . pt reports no symptoms. History of Present Illness HPI narrative: Presents for evaluation of elevated blood pressure. Patient states that for the last 3 days her blood pressure has been running high in the mornings. This morning it was 182/101. Additionally patient reports that she is having altered sensation in the left side of her face that she describes as numbness and feeling swimmy headed . She denies any headache chest pain shortness of breath fever chills hemoptysis hematochezia melena nausea vomiting diarrhea focal neurologic deficits change in level of consciousness. She does take nifedipine in the middle of the day and carvedilol twice a day. Related Data Home Medications ?Medication ?Instructions ?Recorded ?Confirmed levothyroxine 50 mcg tablet 50 mcg PO DAILY 07/12/23 05/04/24 (Synthroid) acetaminophen 650 mg 650 mg PO Q12H 02/15/24 05/04/24 tablet,extended release (Tylenol Arthritis Pain) aspirin 81 mg tablet,delayed 81 mg PO DAILY 02/15/24 05/04/24 release (Adult Low Dose Aspirin) carvedilol 25 mg tablet 25 mg PO BID 02/15/24 05/04/24 multivitamin 1 tab PO DAILY 02/15/24 05/04/24 omega 8-pax-sov-fish oil 1,000 mg 1 cap PO DAILY 02/15/24 05/04/24 (120 mg-180 mg) capsule (Fish Oil) polyethylene glycol 3350 17 gram 17 g PO DAILY 02/15/24 05/04/24 oral powder packet (Miralax) esomeprazole magnesium 40 mg 40 mg PO DAILY 04/27/24 05/04/24 capsule,delayed release (Nexium) lactobacillus combination no.9 4 4,000 mmu cells PO DAILY 04/27/24 05/04/24 billion cell capsule (Adult 50 Plus Probiotic) nifedipine 90 mg tablet,extended 90 mg PO DAILY 04/27/24 05/04/24 release 24 hr psyllium husk 3.4 gram/5.4 gram 1 tbsp PO DAILY 04/27/24 05/04/24 oral powder (Metamucil) Previous Rx's ?Medication ?Instructions ?Recorded peg 3350-electrolytes 236 240 ml PO Q10M colonscopy #4,000 mL 03/04/24 gram-22.74 gram-6.74 gram-5.86 gram solution (Golytely) atorvastatin 40 mg tablet 40 mg PO DAILY hyperlipidemia #30 07/19/24 tabs Allergies Allergy/AdvReac Type Severity Reaction Status Date / Time Penicillins Allergy Unknown Verified 05/04/24 10:52 allergy reaction Sulfa (Sulfonamide Allergy Unknown Verified 05/04/24 10:52 Antibiotics) allergy reaction COUNT INCLUDES THE [facility] <SASKIA Grier - Last Filed: 07/19/24 20:49> COUNT INCLUDES THE [facility] Disclaimer: The information contained in this section may have been updated after the patient was seen, as this information can be updated by other users. Medical History (Updated 07/19/24 @ 17:19 by Sandor Pacheco MD) Kidney disease Pacemaker HTN (hypertension) GERD (gastroesophageal reflux disease) Hypothyroid Surgical History History of esophagogastroduodenoscopy (EGD) History of colonoscopy History of surgery on right wrist History of back surgery History of bunionectomy Hx of shoulder replacement History of knee replacement H/O hernia repair Family History (Updated 05/04/24 @ 11:02 by Carlita Bocanegra RN) Other Family history of acute heart failure Tuberculosis Social History Smoking Status: Never smoker alcohol intake: never current occupational status: retired Travel in the last 8 weeks?: None caffeine: Yes Have you lived/traveled outside [place] in past 30 days?: No Contact w/someone who lives/traveled outside US past 30 days?: No Exposure to someone with infectious disease in past 14 days?: No Do you have a fever (greater than 100.4 F or 38 C)?: No Have you tested positive for COVID-19?: No Exposed to someone with COVID-19 in past 14 days?: No Do you have a sore throat?: No Do you have a cough?: No Do you have any weakness?: No Do you have any diarrhea?: No Are you experiencing any unusual bleeding?: No Do you have any muscle aches/pain?: No Do you have any abdominal pain?: No Are you experiencing loss of taste or smell?: No Other Medical History Have you received the Pneumonia Vaccine: Yes <SASKIA rGier - Last Filed: 07/19/24 20:49> ROS Obtained: Yes Systems reviewed as appropriate & no additional complaints except as documented Physical Exam <SASKIA Grier - Last Filed: 07/19/24 20:49> General General appearance: alert and in no apparent distress Respiratory Respiratory exam: Present normal lung sounds bilaterally Cardiovascular Cardiovascular exam: Present regular rate Neurological Exam Neurological exam: Present alert, oriented X3, CN II-XII intact and normal gait; Absent motor sensory deficit Medical Decision Making <SASKIA Grier - Last Filed: 07/19/24 20:49> Medical Records Medical records reviewed: Yes I reviewed the patient's medical records. Screening: Per USPSTF and CDC recommendations, given the prevalence of disease in our region, it is our hospital?s policy to screen for HIV and viral Hepatitis for all patients aged 18 and over and those with ongoing risk factors. Xander Inquiry Pt receiving controlled substance: No Vital Signs: 07/19/24 13:32 07/19/24 13:34 07/19/24 16:06 Temperature 98.1 F Temperature Source Oral Pulse Rate 70 71 Pulse Rate [Left Radial] 70 Respiratory Rate 19 Blood Pressure 157/78 H 151/68 H Blood Pressure [Right Arm] 164/79 H Blood Pressure Mean [Right Arm] 107 Blood Pressure Source Automatic Cuff 02 Sat by Pulse Oximetry 97 96 94 L Oxygen Delivery Method Room Air Room Air 07/19/24 16:10 07/19/24 17:39 Temperature 98.0 F Temperature Source Pulse Rate 70 Pulse Rate [Left Radial] 72 Respiratory Rate 12 Blood Pressure 143/81 H Blood Pressure [Right Arm] 121/73 Blood Pressure Mean [Right Arm] 89 Blood Pressure Source 02 Sat by Pulse Oximetry 95 Oxygen Delivery Method Room Air Lab Data Lab results reviewed: Yes I reviewed the patient's lab results. Lab Results 07/19/24 14:10: WBC 7.9, RBC 4.43, Hgb 13.9, Hct 41.5, MCV 93.7, MCH 31.4 H, MCHC 33.5, RDW 12.3, Plt Count 252, MPV 10.4, Neut % (Auto) 63.6, Lymph % (Auto) 23.9, Taliaferro % (Auto) 8.1, Eos % (Auto) 3.4, Baso % (Auto) 0.6, Neut # (Auto) 5.0, Lymph # (Auto) 1.9, Taliaferro # (Auto) 0.6, Eos # (Auto) 0.3, Baso # (Auto) 0.1, D-Dimer 1.31 H, Sodium 137, Potassium 4.1, Chloride 108 H, Carbon Dioxide 27, Anion Gap 6.1, BUN 21 H, Creatinine 0.90, Estimated Creat Clear 48, Estimated GFR 60, Est GFR ( Amer) 73, Glucose 91, Calcium 9.6, Magnesium 1.8 07/19/24 14:10: Magnesium 1.7, Total Bilirubin 0.5, AST 27, ALT 20, Alkaline Phosphatase 86, Troponin I < 0.01, NT-Pro-B Natriuret Pep 802 H, Total Protein 6.8, Albumin 4.3, Globulin 2.5, Albumin/Globulin Ratio 1.7, Procalcitonin 0.053 07/19/24 14:10 07/19/24 14:10 Orders (Tests/Meds): ED MEDICATIONS Discontinued Medications Generic Name Dose Route Start Last Admin Trade Name Love PRN Reason Stop Dose Admin Aspirin 81 mg 07/19/24 16:57 07/19/24 17:03 Aspirin 81mg Chewable Tablet PO 07/19/24 16:58 81 mg ONCE ONE Administration Iopamidol 160 ml 07/19/24 15:22 07/19/24 15:26 Iopamidol-370 (76%);100ml Bottle IV 07/19/24 15:23 160 ml ONCE ONE Administration Meclizine HCl 25 mg 07/19/24 13:47 07/19/24 14:46 Meclizine 25mg Tablet PO 07/19/24 13:48 25 mg ONCE ONE Administration Sodium Chloride 10 ml 07/19/24 15:22 07/19/24 15:26 Sodium Chloride 0.9% 10ml Syr (Rad Only) IV 07/19/24 15:23 10 ml ONCE ONE Administration Sodium Chloride 50 ml 07/19/24 15:22 07/19/24 15:26 0.9 % Sodium Chloride 50 Ml Vial IV 07/19/24 15:23 50 ml ONCE ONE Administration ORDERS Category Date Time Status CT angio chest - dissection Stat Cat Scan 07/19/24 14:[address] angio head Stat Cat Scan 07/19/24 13:[address] angio neck Stat Cat Scan 07/19/24 13:[address] head/brain wo con Stat Cat Scan 07/19/24 13:48 Completed BNP [NT Pro Brain Natriuretic Pep.] Stat Lab 07/19/24 14:10 Completed CBC w/Auto Diff [Complete Blood Count Auto Diff] Stat Lab 07/19/24 14:10 Completed CMP [Comprehensive Metabolic Panel] Stat Lab 07/19/24 14:10 Completed D-Dimer Stat Lab 07/19/24 14:10 Completed Magnesium Stat Lab 07/19/24 14:10 Completed Magnesium Stat Lab 07/19/24 14:10 Completed Procalcitonin Stat Lab 07/19/24 14:10 Completed Trop I [Troponin I] Stat Lab 07/19/24 14:10 Completed Medical Decision Narrative: In summary patient is a 84-year-old female who presents to the emergency department for evaluation of elevated blood pressure and left-sided head paresthesia. Patient is initially hemodynamically stable with a blood pressure of 164/79 heart rate 70 of normal sinus rhythm on the bedside monitor breathing 90 times a minute satting at 97% on room air upon arrival, afebrile at 98.1. Physical exam is remarkable for no nuchal rigidity full range of motion of her C-spine without pain pupils equal round reactive to light without icterus, NIH stroke score 0, patient is neurovascular intact in all 4 extremities has full range of motion in all 4 extremities. Breath sounds clear and equal bilaterally to the bases without adventitious sounds. Neck is supple without JVD and lymphadenopathy. Oropharynx is patent cranial nerves II through XII intact grossly to exam patient is awake alert and oriented person place and circumstance. Patient has no slurred speech. Breath sounds clear and equal bilaterally to the bases without adventitious sounds abdomen soft nontender no rebound or guarding no rigidity. Bowel sounds normal active.. Differential diagnosis includes stroke versus accelerated hypertension versus paresthesia versus degenerative disc disease etc. Initial workup will be conducted with CT of the head without contrast CTA of the head neck and hematologic labs.. Initial interventions include meclizine and aspirin. Initial workup reviewed by me and shows that her hematologic labs significant for normal white count with no neutrophilic shift normal H&H, D-dimer is 1.31, troponin is undetectable at less than 0.01 NT proBNP is 802 procalcitonin is 0.053. CTA of the head neck and chest and CTA of the head informally interpreted by me shows a questionable subtle left internal carotid artery abnormality that may be an intimal flap however the remainder of her imaging is negative for any acute abnormality prior to radiology read. I had an interactive discussion with the radiologist regarding her CTA of the head and neck and he concurs that it is questionable that is artifact versus dissection. Given that I had interactive discussion with vascular surgery at the [facility] regarding patient's presentation CLEANING and findings and he recommends outpatient follow-up as it is unlikely to be contributory to the patient's symptoms but recommended baby aspirin. The clinic will contact them for an appointment.. Upon repeat evaluation patient feels comfortable going home via patient directed decision making and discharge after shared decision-making discussion regarding her findings with close follow-up with her PCP and vascular surgery.. Given this patient is appropriate for discharge with instructions to take a baby aspirin daily and close follow-up with her PCP and strict return precautions. <Sandor Pacheco MD - Last Filed: 07/19/24 20:55> Vital Signs: 07/19/24 13:32 07/19/24 13:34 07/19/24 16:06 Temperature 98.1 F Temperature Source Oral Pulse Rate 70 71 Pulse Rate [Left Radial] 70 Respiratory Rate 19 Blood Pressure 157/78 H 151/68 H Blood Pressure [Right Arm] 164/79 H Blood Pressure Mean [Right Arm] 107 Blood Pressure Source Automatic Cuff 02 Sat by Pulse Oximetry 97 96 94 L Oxygen Delivery Method Room Air Room Air 07/19/24 16:10 07/19/24 17:39 Temperature 98.0 F Temperature Source Pulse Rate 70 Pulse Rate [Left Radial] 72 Respiratory Rate 12 Blood Pressure 143/81 H Blood Pressure [Right Arm] 121/73 Blood Pressure Mean [Right Arm] 89 Blood Pressure Source 02 Sat by Pulse Oximetry 95 Oxygen Delivery Method Room Air Lab Data Lab Results 07/19/24 14:10: WBC 7.9, RBC 4.43, Hgb 13.9, Hct 41.5, MCV 93.7, MCH 31.4 H, MCHC 33.5, RDW 12.3, Plt Count 252, MPV 10.4, Neut % (Auto) 63.6, Lymph % (Auto) 23.9, Taliaferro % (Auto) 8.1, Eos % (Auto) 3.4, Baso % (Auto) 0.6, Neut # (Auto) 5.0, Lymph # (Auto) 1.9, Taliaferro # (Auto) 0.6, Eos # (Auto) 0.3, Baso # (Auto) 0.1, D-Dimer 1.31 H, Sodium 137, Potassium 4.1, Chloride 108 H, Carbon Dioxide 27, Anion Gap 6.1, BUN 21 H, Creatinine 0.90, Estimated Creat Clear 48, Estimated GFR 60, Est GFR ( Amer) 73, Glucose 91, Calcium 9.6, Magnesium 1.8 07/19/24 14:10: Magnesium 1.7, Total Bilirubin 0.5, AST 27, ALT 20, Alkaline Phosphatase 86, Troponin I < 0.01, NT-Pro-B Natriuret Pep 802 H, Total Protein 6.8, Albumin 4.3, Globulin 2.5, Albumin/Globulin Ratio 1.7, Procalcitonin 0.053 Orders (Tests/Meds): ED MEDICATIONS Discontinued Medications Generic Name Dose Route Start Last Admin Trade Name Love PRN Reason Stop Dose Admin Aspirin 81 mg 07/19/24 16:57 07/19/24 17:03 Aspirin 81mg Chewable Tablet PO 07/19/24 16:58 81 mg ONCE ONE Administration Iopamidol 160 ml 07/19/24 15:22 07/19/24 15:26 Iopamidol-370 (76%);100ml Bottle IV 07/19/24 15:23 160 ml ONCE ONE Administration Meclizine HCl 25 mg 07/19/24 13:47 07/19/24 14:46 Meclizine 25mg Tablet PO 07/19/24 13:48 25 mg ONCE ONE Administration Sodium Chloride 10 ml 07/19/24 15:22 07/19/24 15:26 Sodium Chloride 0.9% 10ml Syr (Rad Only) IV 07/19/24 15:23 10 ml ONCE ONE Administration Sodium Chloride 50 ml 07/19/24 15:22 07/19/24 15:26 0.9 % Sodium Chloride 50 Ml Vial IV 07/19/24 15:23 50 ml ONCE ONE Administration ORDERS Category Date Time Status CT angio chest - dissection Stat Cat Scan 07/19/24 14:[address] angio head Stat Cat Scan 07/19/24 13:[address] angio neck Stat Cat Scan 07/19/24 13:[address] head/brain wo con Stat Cat Scan 07/19/24 13:48 Completed BNP [NT Pro Brain Natriuretic Pep.] Stat Lab 07/19/24 14:10 Completed CBC w/Auto Diff [Complete Blood Count Auto Diff] Stat Lab 07/19/24 14:10 Completed CMP [Comprehensive Metabolic Panel] Stat Lab 07/19/24 14:10 Completed D-Dimer Stat Lab 07/19/24 14:10 Completed Magnesium Stat Lab 07/19/24 14:10 Completed Magnesium Stat Lab 07/19/24 14:10 Completed Procalcitonin Stat Lab 07/19/24 14:10 Completed Trop I [Troponin I] Stat Lab 07/19/24 14:10 Completed Medical Decision Narrative: In summary patient is a 84-year-old female who presents to the emergency department for evaluation of elevated blood pressure and left-sided head paresthesia. Patient is initially hemodynamically stable with a blood pressure of 164/79 heart rate 70 of normal sinus rhythm on the bedside monitor breathing 90 times a minute satting at 97% on room air upon arrival, afebrile at 98.1. Physical exam is remarkable for no nuchal rigidity full range of motion of her C-spine without pain pupils equal round reactive to light without icterus, NIH stroke score 0, patient is neurovascular intact in all 4 extremities has full range of motion in all 4 extremities. Breath sounds clear and equal bilaterally to the bases without adventitious sounds. Neck is supple without JVD and lymphadenopathy. Oropharynx is patent cranial nerves II through XII intact grossly to exam patient is awake alert and oriented person place and circumstance. Patient has no slurred speech. Breath sounds clear and equal bilaterally to the bases without adventitious sounds abdomen soft nontender no rebound or guarding no rigidity. Bowel sounds normal active.. Differential diagnosis includes stroke versus accelerated hypertension versus paresthesia versus degenerative disc disease etc. Initial workup will be conducted with CT of the head without contrast CTA of the head neck and hematologic labs.. Initial interventions include meclizine and aspirin. Initial workup reviewed by me and shows that her hematologic labs significant for normal white count with no neutrophilic shift normal H&H, D-dimer is 1.31, troponin is undetectable at less than 0.01 NT proBNP is 802 procalcitonin is 0.053. CTA of the head neck and chest and CTA of the head informally interpreted by me shows a questionable subtle left internal carotid artery abnormality that may be an intimal flap however the remainder of her imaging is negative for any acute abnormality prior to radiology read. I had an interactive discussion with the radiologist regarding her CTA of the head and neck and he concurs that it is questionable that is artifact versus dissection. Given that I had interactive discussion with vascular surgery at the [facility] regarding patient's presentation CLEANING and findings and he recommends outpatient follow-up as it is unlikely to be contributory to the patient's symptoms but recommended baby aspirin. The clinic will contact them for an appointment.. Upon repeat evaluation patient feels comfortable going home via patient directed decision making and discharge after shared decision-making discussion regarding her findings with close follow-up with her PCP and vascular surgery.. Given this patient is appropriate for discharge with instructions to take a baby aspirin daily and close follow-up with her PCP and strict return precautions. Sandor Pacheco: I personally evaluated this patient multiple times. Patient has a questionable carotid dissection for which the case was discussed with vascular surgery by Sarabjit Presley, it is not interventional at this time and is likely unresponsible for patient's symptoms and recommended daily aspirin outpatient follow-up. I discussed the possibility of an atypical CVA with pure sensory problem on the left side of the patient's face with her without any other deficits and that there is no way for us to know without getting an MRI. However her cardiovascular risk factors are largely well-managed and I discussed the case with hospitalist who recommends that if we were to discharge the patient that she be started on a statin, specifically atorvastatin once daily. I had shared decision-making discussion with patient at bedside over admission for MRI versus discharge with atorvastatin and outpatient follow-up with strict return precautions and patient wishes to proceed with outpatient management at this time, it was felt that this was reasonable and patient was discharged in stable condition. Critical Care <SASKIA Grier - Last Filed: 07/19/24 20:49> Critical Care Time Critical Care Time: Yes Attestation: On 07/19/24, the high probability of a clinically significant, sudden or life threatening deterioration of the following system(s) required my full and direct attention, intervention and personal management. The time I documented below is in addition to time spent performing reported procedures but includes the following listed in this critical care notation. Total Time Total Critical Care Time: 35
--- NOTE | 2024-07-19 13:47 | CT_ITS ---
PROCEDURE INFORMATION: Exam: CTA Neck With Contrast Exam date and time: 07/19/2024 3:23 PM Age: 84 years old Clinical indication: Other: Left-sided cranial paresthesia TECHNIQUE: Imaging protocol: Computed tomographic angiography of the neck with contrast. Exam focused on the cervical segments of the vasculature. 3D rendering (Not supervised by radiologist): MIP and/or 3D reconstructed images were created by the technologist. Radiation optimization: All CT scans at this facility use at least one of these dose optimization techniques: automated exposure control; mA and/or kV adjustment per patient size (includes targeted exams where dose is matched to clinical indication); or iterative reconstruction. Contrast material: ISOVUE 370; Contrast volume: 80 ml; Contrast route: INTRAVENOUS (IV); COMPARISON: CT ANGIO CHEST 04/20/2024 2:00 PM FINDINGS: Right common carotid artery: No stenosis. No dissection or occlusion. Right internal carotid artery: No stenosis of the extracranial segment. No dissection or occlusion. Right external carotid artery: No occlusion or stenosis of the origin. Left common carotid artery: No stenosis. No dissection or occlusion. Left internal carotid artery: Very subtle linear intraluminal defect in the proximal left ICA. Left external carotid artery: No occlusion or stenosis of the origin. Right vertebral artery: Right vertebral artery is diminutive, a anatomical variant. No stenosis or occlusion. Left vertebral artery: No stenosis. No dissection or occlusion. Other arteries: Dominant left verterbal artery without stenosis or occlusion. Soft tissues: Normal. No significant soft tissue swelling. Bones/joints: Moderate degenerative changes of the cervical spine. No fracture. Lungs: Chronic air trapping in the bilateral lung apices without consolidations. Benign calcified granuloma in the right lung apex. IMPRESSION: 1. Very subtle linear intraluminal defect in the proximal left ICA. Questions artifact or a small intimal flap. No stenosis or occlusion. Consider correlation with ultrasound. 2. Remainder of the neck arteries are patent without stenosis. REFERENCES: NASCET CRITERIA. The degree of stenosis in the cervical segment of the internal carotid artery is based on NASCET criteria. Normal is no stenosis. Mild is less than 50% stenosis. Moderate is 50-69% stenosis. Severe is 70% to 99% stenosis. Total occlusion is no detectable patent lumen.
--- NOTE | 2024-07-19 13:47 | CT_ITS ---
PROCEDURE INFORMATION: Exam: CTA Head With Contrast, Arteriography Exam date and time: 07/19/2024 3:23 PM Age: 84 years old Clinical indication: Weakness; Additional info: Left-sided cranial paresthesia TECHNIQUE: Imaging protocol: Computed tomographic angiography of the head with contrast. Exam focused on the arteries. 3D rendering (Not supervised by radiologist): MIP and/or 3D reconstructed images were created by the technologist. Radiation optimization: All CT scans at this facility use at least one of these dose optimization techniques: automated exposure control; mA and/or kV adjustment per patient size (includes targeted exams where dose is matched to clinical indication); or iterative reconstruction. Contrast material: ISOVUE; Contrast volume: 150 ml; Contrast route: INTRAVENOUS (IV); COMPARISON: CT HEAD/BRAIN WO CON 07/19/2024 3:21 PM FINDINGS: ANTERIOR CIRCULATION: Right internal carotid artery: Minimal calcification at the cavernous segment of the right ICA, without signficant stenosis. Right middle cerebral artery: No occlusion or significant stenosis. No aneurysm. Right anterior cerebral artery: No occlusion or significant stenosis. No aneurysm. Left internal carotid artery: Minimal calcification at the cavernous segment of the left ICA, without signficant stenosis. Left middle cerebral artery: No occlusion or significant stenosis. No aneurysm. Left anterior cerebral artery: No occlusion or significant stenosis. No aneurysm. POSTERIOR CIRCULATION: Right vertebral artery: Diminutive/hypoplastic intracranial segment of the right vertebral artery. Left vertebral artery: Dominant left vertebral artery, no stenosis or occlusion. Basilar artery: No occlusion or significant stenosis. No aneurysm. Right posterior cerebral artery: No occlusion or significant stenosis. No aneurysm. Left posterior cerebral artery: No occlusion or significant stenosis. No aneurysm. Brain: No definite mass, mass effect, or midline shift. Cerebral ventricles: No ventriculomegaly. Paranasal sinuses: Chronic sphenoid sinusitis. 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 Bones/joints: Unremarkable. No acute fracture. Soft tissues: Unremarkable. IMPRESSION: No large vessel stenosis or occlusion.
--- NOTE | 2024-07-19 13:48 | CT_ITS ---
PROCEDURE INFORMATION: Exam: CT Head Without Contrast Exam date and time: 07/19/2024 3:21 PM Age: 84 years old Clinical indication: Numbness / parasthesia; Left; Additional info: Left-sided numbness of the head TECHNIQUE: Imaging protocol: Computed tomography of the head without contrast. Radiation optimization: All CT scans at this facility use at least one of these dose optimization techniques: automated exposure control; mA and/or kV adjustment per patient size (includes targeted exams where dose is matched to clinical indication); or iterative reconstruction. COMPARISON: No relevant prior studies available. FINDINGS: Brain: Minimal age related brain involution and chronic small vessel disease. No acute intracranial hemorrhage or mass effect. Cerebral ventricles: Mild exvacuo dilation of the ventricles. Paranasal sinuses: Chronic sphenoid sinusitis. 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 Mastoid air cells: Visualized mastoid air cells are well aerated. Bones: Unremarkable. No acute fracture. Soft tissues: Unremarkable. IMPRESSION: No acute intracranial abnormality.
[2024-07-19 14:31] LABS: Basophils # 0.1 K/mm3 (0-0.2); Basophils % 0.6 % (0.1-2.0); Eosinophils # 0.3 Kmm3 (0.0-0.4); Eosinophils % 3.4 % (0.1-12.0); Hematocrit 41.5 % (37.0-47.0); Hemoglobin 13.9 g/dL (12.2-16.2); Immature Granulocytes # 0.03 10^3uL; Immature Granulocytes % 0.4 %; Lymphocytes # 1.9 K/mm3 (0.7-4.5); Lymphocytes % 23.9 % (10-50); Mean Corpuscular HGB Conc 33.5 g/dL (31.8-35.4); Mean Corpuscular Hemoglobin 31.4 pg (27.0-31.2); Mean Corpuscular Volume 93.7 fl (81-99); Mean Platelet Volume 10.4 fl (7.4-10.4); Monocytes # 0.6 K/mm3 (0.1-1.0); Monocytes % 8.1 % (1.7-9.3); Neutrophils % 63.6 % (37.0-80.0); Nucleated Red Blood Cells # 0 10^3/uL; Nucleated Red Blood Cells % 0 %; Platelet Count 252 K/mm3 (142-424); Red Blood Count 4.43 M/mm3 (4.20-5.40); Red Cell Distribution Width 12.3 % (11.5-17.5); Red Cell Distribution Width-SD 42.8 fL; White Blood Count 7.9 K/mm3 (4.8-10.8)
[2024-07-19 14:42] LABS: Alanine Aminotransferase 20 U/L (12-78); Albumin Level 4.3 g/dl (3.5-5.0); Albumin/Globulin Ratio 1.7 (1.1-1.8); Alkaline Phosphatase 86 U/L (38-126); Anion Gap 6.1 mEq/L (5-15); Aspartate Amino Transferase 27 U/L (14-36); Bilirubin,Total 0.5 mg/dl (0.2-1.3); Blood Urea Nitrogen 21 mg/dl (7-17); Calcium 9.6 mg/dl (8.4-10.2); Carbon Dioxide 27 mmol/L (22.0-30.0); Chloride 108 mmol/L (98-107); Creatinine Clearance Estimated 48 mL/min (50-200); Estimated Glomerular Filt Rate 60 ml/min (>60); GFR (African American) 73 ML/MIN (>60); Globulin 2.5 g/dL (1.3-3.2); Glucose 91 mg/dl (74-100); Magnesium 1.8 mg/dl (1.6-2.3); Potassium 4.1 mmoL/L (3.5-5.1); Sodium 137 mmol/L (136-145); Total Protein,Serum 6.8 g/dl (6.3-8.2)
[2024-07-19 14:46] LABS: D-Dimer 1.31 ug/mL (0.0-0.5)
[2024-07-19] MEDS: MECLIZINE 25MG TABLET 25 MG PO (14:46)
--- NOTE | 2024-07-19 14:55 | CT_ITS ---
PROCEDURE INFORMATION: Exam: CTA Chest With Contrast Exam date and time: 07/19/2024 3:28 PM Age: 84 years old Clinical indication: Other: Left-sided head paresthesia TECHNIQUE: Imaging protocol: Computed tomographic angiography of the chest with contrast. Exam focused on the arteries. 3D rendering (Not supervised by radiologist): MIP and/or 3D reconstructed images were created by the technologist. Radiation optimization: All CT scans at this facility use at least one of these dose optimization techniques: automated exposure control; mA and/or kV adjustment per patient size (includes targeted exams where dose is matched to clinical indication); or iterative reconstruction. Contrast material: ISOVUE 370; Contrast volume: 80 ml; Contrast route: INTRAVENOUS (IV); COMPARISON: CT ANGIO NECK 07/19/2024 3:23 PM FINDINGS: Pulmonary arteries: Pulmonary vasculature is adequately opacified without filling defects or other evidence of acute pulmonary embolism. Aorta: Scattered atherosclerotic changes of the thoracic aorta. No aortic aneurysm. Lungs: There are minor atelectatic changes at the lung bases. Minor atelectatic changes right middle lobe otherwise lung plascencia are clear. Pleural spaces: Unremarkable. No pneumothorax. No pleural effusion. Heart: Heart is mildly enlarged. Pacemaker wires extending to the right atrium right ventricle. Mild calcification of coronary arteries. No significant pericardial effusion. Lymph nodes: Unremarkable. No enlarged lymph nodes. Bones/joints: Moderate degenerative changes midthoracic spine. Advanced degenerative changes upper lumbar spine. Chronic fracture L1 vertebral body. Prior right shoulder replacement. No acute bony abnormalities detected. Soft tissues: Unremarkable. IMPRESSION: Negative CT angiogram of the chest. No evidence of acute pulmonary embolism.
[2024-07-19 14:56] LABS: NT Pro Brain Natriuretic Pep. 802 pg/mL (0-450)
[2024-07-19 14:58] LABS: Troponin I < 0.01 ng/ml (0.00-0.034)
[2024-07-19 15:00] LABS: Procalcitonin 0.053 ng/mL (0.0-2.0)
[2024-07-19] MEDS: IOPAMIDOL-370 (76%);100ML BOTTLE 160 ML IV (15:26)
[2024-07-19] MEDS: 0.9 % SODIUM CHLORIDE 50 ML VIAL IV (15:26)
[2024-07-19] MEDS: SODIUM CHLORIDE 0.9% 10ML SYR (RAD ONLY) 10 ML IV (15:26)
[2024-07-19 16:06] VITALS: BP 151/68; PULSE 71; O2SAT 94
[2024-07-19 16:10] VITALS: BP 121/73; PULSE 72; O2SAT 95
--- NOTE | 2024-07-19 16:20 | PC.NURSE ---
Sarabjit speaking w/ [facility]
--- NOTE | 2024-07-19 16:25 | PC.NURSE ---
Sarabjit KRUGER s/w [facility]
--- NOTE | 2024-07-19 16:30 | PC.NURSE ---
Called [facility] per SASKIA Presley they are going to call back to speak with don shortly.
--- NOTE | 2024-07-19 16:35 | PC.NURSE ---
1632 - Don speaking w/ [facility] @ this time
[2024-07-19 16:38] LABS: Magnesium 1.7 mg/dl (1.6-2.3)
[2024-07-19] MEDS: ASPIRIN 81MG CHEWABLE TABLET 81 MG PO (17:03)
[2024-07-19 17:39] VITALS: BP 143/81; PULSE 70; RESP 12; TEMP 36.7; O2SAT 95
== END 2024-07-19 17:39 | disposition home or self-care (01) ==
PROVIDERS: Emergency Medicine; Physician Assistant; Emergency Provider Emergency Medicine; PCP Nurse Practitioner Family
DX: I77.71 Dissection of carotid artery (principal); R20.2 Paresthesia of skin; R79.89 Other specified abnormal findings of blood chemistry; I10 Essential (primary) hypertension
CPT/HCPCS: 70450; 70496; 70498; 71275; 80053; 83735; 83880; 84145; 84484; 85025; 85378; 99291; Q9967